=== PATIENT | female | born 2000 | race Caucasian/White ===

== ENCOUNTER 2021-08-21 18:52 | Emergency (ER) | payer OTHER ==
--- OUTSIDE RECORDS SUMMARY | 2021-08-21 18:55 | XMS REPORT | Continuity of Care Document ---
:2000 Author Organization [facility] t Address [address] [place] [address] Care Team Providers Name Role Phone Don Raymundo MD Primary Care Physician DON RAYMUNDO Attending Clinician Unavailable Don Raymundo MD Attending Clinician ELILE Attending Clinician Unavailable UNKNOWN Attending Clinician Unavailable Shanika TORRE Attending Clinician Unavailable Linda NEWTON Attending Clinician Unavailable Payers Payer Name Policy Type Policy Number Effective Date Expiration Date [place] [facility] [id number] 2014 EMPLOYEE PLAN 00:00:00 Advance Directives Directive Decision Effective Termination Comments Source Date Date Healthcare Agents on N/A Univ ersity FileNameRelationshipHealthcare [facility] Agent Medical RelationshipCommunicationNettie Branch [facility] [phone] (Mobile) [email or web address] [facility] [phone] (Mobile) Problems Condition Condition Condition Status Onset Resolution Last Treating Co mments Source Name Details Category Date Date Treatment Clinician Date Allergic Allergic Disease Active Unive rs dermatitis dermatitis - it y of 00:00: [place] [id number] Medical Branch Nexplanon Nexplanon Disease Active Uni vers insertion insertion -18 ity of 00:00: [address] Branch Nexplanon Nexplanon Disease Active Overview: Univers removal removal 01-22 Formattin ity o f 00:00: g of this 00 note Medical might be Branch different from the original. Removal date 02/22/20 Attention Attention Disease Active 2014-10 Uni vers deficit deficit 0-19 ity of disorder disorder 00:00: [place] (ADD) (ADD) 00 Medical without without Branch hyperactiv hyperactiv ity ity Allergies, Adverse Reactions, Alerts Allergy Allergy Status Severity Reaction(s) Onset Inactive Treating Comm ents Source Name Type Date Date Clinician NO KNOWN Drug Active Univers ALLERGIE Class ity of S [place] [facility] Social History Social Habit Start Date Stop Date Quantity Comments [facility] Alcohol Comment Medical B ranch Exposure to Not sure [facility] SARS-CoV-2 (event) Medica l Branch Alcohol intake 2021-07-27 2021-07-27 .14 /d [facility] 00:00:00 00:00:00 Medical Branch History [facility] 2020-04-20 2020-04-20 2 [facility] Alcohol Frequency 00:00:00 00:00:00 Medical Branch History [facility] 2020-04-20 2020-04-20 2 [facility] Alcohol Std Drinks 00:00:00 00:00:00 Medica l Branch History [facility] 2020-04-20 2020-04-20 1 [facility] Alcohol Binge 00:00:00 00:00:00 Medical Bra [facility] Sex Assigned At [birth year] [facility] 00:00:00 00:00:00 Medical Branch Smoking Status Start Date Stop Date Source Never smoker [facility] Medical Branch Medications Ordered Filled Start Stop Current Ordering Indication Dosage Frequency Signature Comments Components Source Medication Medication Date Date Medication? Clinician (SIG) Name Name escitalopra Yes [id number] 10mg Take 1 Univers m oxalate 9-21 tablet by ity o f 10 mg 00:00: mouth [place] tablet 00 daily. Medical Branch escitalopra Yes [id number] 10mg Take 1 Univers m oxalate 9-21 tablet by ity o f 10 mg 00:00: mouth [place] tablet 00 daily. Medical Branch amoxicillin 2020- No Unive rs 500 mg 7-02 13- ity of capsule 00:00: 00:00 [place] 00 :00 Medical Branch amoxicillin 2020- No Unive rs 500 mg 7-02 13-21 ity of capsule 00:00: 00:00 [place] 00 :00 Medical Branch Immunizations Ordered Immunization Filled Immunization Date Status Commen ts Source Name Name HPV9 2017-08-02 Completed University of 00:00:00 [facility] HPV9 2017-08-02 Completed University of 00:00:00 [facility] HPV9 2017-04-02 Completed University of 00:00:00 [facility] HPV9 2017-04-02 Completed University of 00:00:00 [facility] HPV9 2017-01-22 Completed University of 00:00:00 [facility] HPV9 2017-01-22 Completed University of 00:00:00 [facility] TDAP (ADACEL) 2016-01-23 Completed University of VACCINE 00:00:00 [facility] TDAP (ADACEL) 2016-01-23 Completed University of VACCINE 00:00:00 [facility] TDAP 2014-01-18 Completed University of 00:00:00 [facility] Varicella 2014-01-18 Completed University of (varivax)(chicken 00:00:00 [place] M edical pox) Branch Meningococcal 2014-01-18 Completed University of Vaccine 00:00:00 [facility] TDAP 2014-01-18 Completed University of 00:00:00 [facility] Varicella 2014-01-18 Completed University of (varivax)(chicken 00:00:00 [facility] edical pox) Branch Meningococcal 2014-01-18 Completed University of Vaccine 00:00:00 [facility] DTAP 2006-03-12 Completed University of 00:00:00 [facility] MMR 2006-03-12 Completed University of 00:00:00 [facility] Polio (IPV/OPV) 2006-03-12 Completed Universit y of 00:00:00 [facility] DTAP 2006-03-12 Completed University of 00:00:00 [facility] MMR 2006-03-12 Completed University of 00:00:00 [facility] Polio (IPV/OPV) 2006-03-12 Completed Universit y of 00:00:00 [facility] HEPATITIS A 2004-06-20 Completed University of 00:00:00 [facility] HEPATITIS A 2004-06-20 Completed University of 00:00:00 [facility] HEPATITIS A 2003-11-30 Completed University of 00:00:00 [facility] HEPATITIS A 2003-11-30 Completed University of 00:00:00 [facility] DTAP 2003-03-08 Completed University of 00:00:00 [facility] HIB 4 Dose Schedule 2003-03-08 Completed Unive rsity of 00:00:00 [facility] Pneumococcal 13 2003-03-08 Completed Universit y of Conjugate, PCV13 00:00:00 [facility] dical (Prevnar 13) Branch DTAP 2003-03-08 Completed University of 00:00:00 [facility] HIB 4 Dose Schedule 2003-03-08 Completed Unive rsity of 00:00:00 [facility] Pneumococcal 13 2003-03-08 Completed Universit y of Conjugate, PCV13 00:00:00 [place] Me dical (Prevnar 13) Branch Varicella 2002-10-14 Completed University of (varivax)(chicken 00:00:00 [place] M edical pox) Branch MMR 2002-10-14 Completed University of 00:00:00 [facility] Pneumococcal 13 2002-10-14 Completed Universit y of Conjugate, PCV13 00:00:00 [place] Me dical (Prevnar 13) Branch Varicella 2002-10-14 Completed University of (varivax)(chicken 00:00:00 [place] M edical pox) Branch MMR 2002-10-14 Completed University of 00:00:00 [facility] Pneumococcal 13 2002-10-14 Completed Universit y of Conjugate, PCV13 00:00:00 [facility] dical (Prevnar 13) Branch Hep B, Adol or Pedi 2002-07-21 Completed Unive rsity of Dosage 00:00:00 [facility] Hep B, Adol or Pedi 2002-07-21 Completed Unive rsity of Dosage 00:00:00 [facility] DTAP 2002-04-13 Completed University of 00:00:00 [facility] Polio (IPV/OPV) 2002-04-13 Completed Universit y of 00:00:00 [facility] HIB 4 Dose Schedule 2002-04-13 Completed Unive rsity of 00:00:00 [facility] Pneumococcal 13 2002-04-13 Completed Universit y of Conjugate, PCV13 00:00:00 [facility] dical (Prevnar 13) Branch DTAP 2002-04-13 Completed University of 00:00:00 [facility] Polio (IPV/OPV) 2002-04-13 Completed Universit y of 00:00:00 [facility] HIB 4 Dose Schedule 2002-04-13 Completed Unive rsity of 00:00:00 [facility] Pneumococcal 13 2002-04-13 Completed Universit y of Conjugate, PCV13 00:00:00 [place] Me dical (Prevnar 13) Branch DTAP 2002-02-10 Completed University of 00:00:00 [facility] Polio (IPV/OPV) 2002-02-10 Completed Universit y of 00:00:00 [facility] HIB 4 Dose Schedule 2002-02-10 Completed Unive rsity of 00:00:00 [facility] DTAP 2002-02-10 Completed University of 00:00:00 [facility] Polio (IPV/OPV) 2002-02-10 Completed Universit y of 00:00:00 [facility] HIB 4 Dose Schedule 2002-02-10 Completed Unive rsity of 00:00:00 [facility] DTAP 2001 Completed University of 00:00:00 [facility] Polio (IPV/OPV) 2001 Completed Universit y of 00:00:00 [facility] HIB 4 Dose Schedule 2001 Completed Unive rsity of 00:00:00 [facility] Hep B, Adol or Pedi 2001 Completed Unive rsity of Dosage 00:00:00 [facility] Pneumococcal 13 2001 Completed Universit y of Conjugate, PCV13 00:00:00 [place] Me dical (Prevnar 13) Branch DTAP 2001 Completed University of 00:00:00 [facility] Polio (IPV/OPV) 2001 Completed Universit y of 00:00:00 [facility] HIB 4 Dose Schedule 2001 Completed Unive rsity of 00:00:00 [facility] Hep B, Adol or Pedi 2001 Completed Unive rsity of Dosage 00:00:00 [facility] Pneumococcal 13 2001 Completed Universit y of Conjugate, PCV13 00:00:00 [facility] dical (Prevnar 13) Branch Hep B, Adol or Pedi 2001 Completed Unive rsity of Dosage 00:00:00 [facility] Hep B, Adol or Pedi 2001 Completed Unive rsity of Dosage 00:00:00 [facility] Vital Signs Vital Name Observation Time Observation Value Comments Source Systolic blood 2021-07-27 15:06:00 90 mm[Hg] Univer [facility] Branch Diastolic blood 2021-07-27 15:06:00 63 mm[Hg] Unive [facility] pressure [facility] Heart rate 2021-07-27 15:06:00 69 /min [facility] Body weight 2021-07-27 15:06:00 52.617 kg [facility] Procedures This patient has no known procedures. Encounters Start End Encounter Admission Attending Care Care Encounter Source Date/Time Date/Time Type Type Clinicians Facility Department ID 2021-10-26 2021-10-26 Outpatient Shanika RAYMUNDO [facility] [id number] Univers 09:15:00 09:15:00 JUANCHO [id number] [facility] 2021-10-26 2021-10-26 Outpatient Shanika RAYMUNDO [facility] [id number] Univers 09:15:00 09:15:00 [facility] 2021-07-27 2021-07-27 [id number] Univers 10:04:33 10:19:33 Visit [facility] [id number] it y of [place] [id number] Thanh as Dariel?Blea [id number] [address] Medical Office Building 2021-07-27 2021-07-27 Outpatient Shanika RAYMUNDO [facility] [id number] Univers 10:00:00 10:00:00 JUANCHO [id number] [facility] 2021-07-27 2021-07-27 Outpatient Shanika RAYMUNDO [facility] [id number] Univers 10:00:00 10:00:00 JUANCHO [facility] 2021-06-27 2021-06-27 Outpatient Shanika RAYMUNDO [facility] [id number] Univers 08:30:00 08:30:00 JUANCHO [id number] [facility] 2021-06-27 2021-06-27 Outpatient Shanika RAYMUNDO [facility] [id number] Univers 08:30:00 08:30:00 JUANCHO [facility] 2021-06-17 2021-06-17 Outpatient Shanika ARGUETA [facility] [id number] Univers 11:00:00 11:00:00 GARY [facility] 2021-06-17 2021-06-17 Outpatient R [facility] [id number] Univers 11:00:00 11:00:00 [id number] [facility] 2021-06-14 2021-06-14 Outpatient R [facility] [id number] Univers 20:15:00 20:15:00 [id number] [facility] 2021-06-14 2021-06-14 Outpatient R UNKNOWN, [facility] [id number] Univers 20:15:00 20:15:00 ATTENDING [facility] 2021-05-11 2021-05-11 Outpatient R JERRYCHRISDOMITILA [facility] [id number] Univers 11:30:00 11:30:00 JUANCHO [id number] [facility] 2021-05-11 2021-05-11 Outpatient R BISIDOMITILA [facility] [id number] Univers 11:30:00 11:30:00 JUANCHO [facility] 2021-03-02 2021-03-02 [id number] Univers 10:45:00 10:45:00 JUANCHO [id number] [facility] 2021-03-02 2021-03-02 Outpatient R ANTOINE [facility] [id number] Univers 10:45:00 10:45:00 JUANCHO [facility] 2021-02-08 2021-02-08 Outpatient R BISIDOMITILA [facility] [id number] Univers 13:00:00 13:00:00 JUANCHO [id number] [facility] 2021-01-10 2021-01-10 Outpatient R JERRYCHRISDOMITILA [facility] [id number] Univers 13:30:00 13:30:00 JUANCHO [id number] [facility] 2021-01-10 2021-01-10 Outpatient R JERRYCHRISDOMITILA [facility] [id number] Univers 13:30:00 13:30:00 JUANCHO [facility] 2020-10-11 2020-10-11 Outpatient R ANTOINE [facility] [id number] Univers 13:00:00 13:00:00 [facility] [id number] [facility] 2020-10-11 2020-10-11 Outpatient R ANTOINE [facility] [id number] Univers 13:00:00 13:00:00 JUANCHO [facility] 2020-09-17 2020-09-17 Outpatient R [facility] [id number] Univers 12:40:00 12:40:00 [id number] [facility] 2020-09-17 2020-09-17 Outpatient R ELLIE [facility] [id number] Univers 12:40:00 12:40:00 GARY [facility] 2020-05-04 2020-05-04 Outpatient R YELITZA [facility] [id number] Univers 15:15:00 15:15:00 ALEJANDRO [id number] ity o f [facility] 2020-05-04 2020-05-04 Outpatient R YELITZA [facility] [id number] Univers 15:15:00 15:15:00 ALEJANDRO burketty o f [facility] 2020-04-22 2020-04-22 Outpatient R [facility] [id number] Univers 11:40:00 11:40:00 [id number] [facility] 2020-04-22 2020-04-22 Outpatient R [facility] [id number] Univers 11:40:00 11:40:00 ity [facility] 2020-04-20 2020-04-20 Outpatient R YELITZA [facility] [id number] Univers 15:15:00 15:15:00 ALEJANDRO [id number] ity o f [facility] 2020-04-20 2020-04-20 Outpatient R YELITZA [facility] [id number] Univers 15:15:00 15:15:00 ALEJANDRO burketty o f [facility] 2020-02-03 2020-02-03 Outpatient R ANTOINE [facility] [id number] Univers 15:30:00 15:30:00 JUANCHO [id number] [facility] 2020-02-03 2020-02-03 Outpatient R BISIDOMITILA [facility] [id number] Univers 15:30:00 15:30:00 JUANCHO [facility] 2020-01-30 2020-01-30 Outpatient R [facility] [id number] Univers 14:00:00 14:00:00 [id number] [facility] 2020-01-30 2020-01-30 Outpatient R LAMAR [facility] [id number] Univers 14:00:00 14:00:00 TAMIKO [facility] Results This patient has no known results.
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
[2021-08-22 00:23] VITALS: TEMP 98.3
[2021-08-22 00:24] VITALS: BP 117/69; O2SAT 100
== END 2021-08-21 22:07 | disposition home or self-care (01) ==
LOC: ER 18:52
DX: S16.1XXA Strain of muscle, fascia and tendon at neck level, initial encounter (principal); S09.90XA Unspecified injury of head, initial encounter; V49.40XA Driver injured in collision with unspecified motor vehicles in traffic accident, initial encounter; F17.210 Nicotine dependence, cigarettes, uncomplicated; F32.A Depression, unspecified
CPT/HCPCS: 70450; 72125; 99284

== ENCOUNTER 2023-09-09 14:29 | Emergency (ER) | payer OTHER, BC ==
--- OUTSIDE RECORDS SUMMARY | 2023-09-09 14:41 | XMS REPORT | Continuity of Care Document ---
:2000 Author Organization [facility] t Address [address] [place] [address] Care Team Providers Name Role Phone Antoine WHEELER, Juancho Ochoa Primary Care Physician [phone] Jyotsna Torrez MD Attending Clinician JYOTSNA TORREZ Attending Clinician Unavailable Doctor Unassigned, [place] Attending Clinician Unavailable DENISE BELLO Attending Clinician Unavailable DENISE BELLO Attending Clinician Unavailable Lab, Ang - Db Attending Clinician Unavailable JUANCHO SCHULTZ Attending Clinician Unavailable Juancho Schultz MD Attending Clinician Vaccine, Ang Db Cbc Fam Attending Clinician Unavailable Team, [facility] Attending Clinician UnavailRenetta Pineda Attending Clinician Nely Archuleta Attending Clinician NELY ARGUETA Attending Clinician Unavailable Gema Santana MD Attending Clinician Ranjana Mitchell Attending Clinician RANJANA IRVING Attending Clinician Unavailable Mandi Villar RN Attending Clinician Unavailable Only, Ang Db Test Attending Clinician Unavailable Unknown, Attending Attending Clinician Unavailable Tonya Edward PA-C Attending Clinician UNKNOWN, ATTENDING Attending Clinician Unavailable Lab, Adc Fam Pob I Attending Clinician Unavailable Angelita Chinchilla Attending Clinician ANGELITA TORRE Attending Clinician Unavailable Donna Barraza Attending Clinician TAMIKO NEWTON Attending Clinician Unavailable Payers Payer Name Policy Type Policy Number Effective Date Expiration Date S ource Problems Condition Condition Condition Status Onset Resolution Last Treating Co mments Source Name Details Category Date Date Treatment Clinician Date Vaginal Vaginal Disease Active Univers discharge discharge 2-22 ity of 00:00: [place] 00 Medical Branch Allergic Allergic Disease Active Unive rs dermatitis dermatitis - it y of 00:00: [place] 00 Medical [place] Screening Screening Disease Active Uni vers examinatio examinatio -18 it y of n for n for 00:00: [place] venereal venereal 00 Medica l disease disease Branch Nexplanon Nexplanon Disease Active Overview: Univers removal removal 01-22 Formattin ity o f 00:00: g of this 00 note Medical might be Branch different from the original. Removal date 02/22/20 Attention Attention Disease Active 2014-10 Uni vers deficit deficit 0-19 ity of disorder disorder 00:00: [place] (ADD) (ADD) 00 Medical without without Branch hyperactiv hyperactiv ity ity Allergies, Adverse Reactions, Alerts Allergy Allergy Status Severity Reaction(s) Onset Inactive Treating Comm ents Source Name Type Date Date Clinician NO KNOWN Drug Active Univers ALLERGIE Class ity of S [facility] Social History Social Habit Start Date Stop Date Quantity Comments Source History of tobacco Cigarette Smoker University of use [facility] Sexual orientation Univer sity of [facility] Alcohol intake 2023-08-08 2023-08-08 .14 /d [facility] 00:00:00 00:00:00 [facility] Tobacco use and 2022-11-28 2022-11-28 Smokeless Universit y of exposure 00:00:00 00:00:00 tobacco non-user [facility] Tobacco Comment 2022-11-28 2022-11-28 1/2 pack per Univers ity of 00:00:00 00:00:00 week [facility] Alcohol Comment 2022-11-28 2022-11-28 weekends Universit y of 00:00:00 00:00:00 [facility] Exposure to 2022-11-17 2022-11-27 Not sure University SARS-CoV-2 (event) 00:00:00 10:19:00 [facility] History of Social 2022-06-28 2022-06-28 Univers ity of function 00:00:00 00:00:00 [place] [facility] [place] History SDIL 2020-04-20 2020-04-20 2 University o f Alcohol Frequency 00:00:00 00:00:00 [facility] edical Branch History [facility] 2020-04-20 2020-04-20 2 University o f Alcohol Std Drinks 00:00:00 00:00:00 [facility] History [facility] 2020-04-20 2020-04-20 1 University o f Alcohol Binge 00:00:00 00:00:00 [facility] [place] [facility] Sex Assigned At 2000 2001 Universit y of 00:00:00 00:00:00 [facility] Smoking Status Start Date Stop Date Source Occasional tobacco [facility]22[facility] Medications Ordered Filled Start Stop Current Ordering Indication Dosage Frequency Signature Comments Components Source Medication Medication Date Date Medication? Clinician (SIG) Name Name escitalopra 2021-10 Yes [id number] 20mg Take 1 Univers m oxalate 2-22 tablet by ity o f 20 mg 00:00: mouth in [place] tablet 00 the Medical morning. Branch escitalopra 2021-10 Yes [id number] 20mg Take 1 Univers m oxalate 2-22 tablet by ity o f 20 mg 00:00: mouth in [place] tablet 00 the Medical morning. Branch escitalopra 2021-10 Yes [id number] 20mg Take 1 Univers m oxalate 2-22 tablet by ity o f 20 mg 00:00: mouth in [place] tablet 00 the Medical morning. Branch escitalopra 2021-10 Yes [id number] 20mg Take 1 Univers m oxalate 2-22 tablet by ity o f 20 mg 00:00: mouth in [place] tablet 00 the Medical morning. Branch escitalopra 2021-10 Yes [id number] 20mg Take 1 Univers m oxalate 2-22 tablet by ity o f 20 mg 00:00: mouth in [place] tablet 00 the Medical morning. Branch escitalopra 2021-10 Yes [id number] 20mg Take 1 Univers m oxalate 2-22 tablet by ity o f 20 mg 00:00: mouth in [place] tablet 00 the Medical morning. Branch escitalopra 2021-10 Yes [id number] 20mg Take 1 Univers m oxalate 2-22 tablet by ity o f 20 mg 00:00: mouth in [place] tablet 00 the Medical morning. Branch escitalopra 2021-10 Yes [id number] 20mg Take 1 Univers m oxalate 2-22 tablet by ity o f 20 mg 00:00: mouth in [place] tablet 00 the Medical morning. Branch escitalopra 0 Yes [id number] 10mg Take 1 Univers m oxalate 9-22 tablet by ity o f 10 mg 00:00: mouth in [place] tablet 00 the Medical morning. Branch escitalopra Yes [id number] 10mg Take 1 Univers m oxalate 9-22 tablet by ity o f 10 mg 00:00: mouth in [place] tablet 00 the Medical morning. Branch escitalopra Yes [id number] 10mg Take 1 Univers m oxalate 9-22 tablet by ity o f 10 mg 00:00: mouth in [place] tablet 00 the Medical morning. Branch escitalopra 2021-0 2- No [id number] 10mg Take 1 Univers m oxalate 9-22 12-22 tablet by ity of 10 mg 00:00: 00:00 mouth in [place] tablet 00 :00 the Medical morning. Branch escitalopra 2021-0 2- No [id number] 10mg Take 1 Univers m oxalate 9-22 12-22 tablet by ity of 10 mg 00:00: 00:00 mouth in [place] tablet 00 :00 the Medical morning. Branch lidocaine Yes [id number] 3mL Take 3 mL Univers 2% viscous 2-05 by mouth ity o f (LIDOCAINE 00:00: every 4 [place] VISC[place] 2 00 (four) Medical % solution hours as Branc h needed for Local anesthesia or Oral mucosal pain (brush with q tip over broken tooth/guml ine). lidocaine Yes [id number] 3mL Take 3 mL Univers 2% viscous 2-05 by mouth ity o f (LIDOCAINE 00:00: [place] V[place] 2 00 (four) Medical % solution hours as Branc h needed for Local anesthesia or Oral mucosal pain (brush with q tip over broken tooth/guml ine). lidocaine Yes [id number] 3mL Take 3 mL Univers 2% viscous 2-05 by mouth ity o f (LIDOCAINE 00:00: every [place] VISC[place] 2 00 (four) Medical % solution hours as Branc h needed for Local anesthesia or Oral mucosal pain (brush with q tip over broken tooth/guml ine). lidocaine Yes [id number] 3mL Take 3 mL Univers 2% viscous 2-05 by mouth ity o f (LIDOCAINE 00:00: every [place] V[place] 2 00 (four) Medical % solution hours as Branc h needed for Local anesthesia or Oral mucosal pain (brush with q tip over broken tooth/guml ine). lidocaine Yes [id number] 3mL Take 3 mL Univers 2% viscous 2-05 by mouth ity o f (LIDOCAINE 00:00: every 4 [place] VISC[place] 2 00 (four) Medical % solution hours as Branc h needed for Local anesthesia or Oral mucosal pain (brush with q tip over broken tooth/guml ine). lidocaine Yes [id number] 3mL Take 3 mL Univers 2% viscous 2-05 by mouth ity o f (LIDOCAINE 00:00: every 4 [place] VISC[place] 2 00 (four) Medical % solution hours as Branc h needed for Local anesthesia or Oral mucosal pain (brush with q tip over broken tooth/guml ine). lidocaine 2021- No [id number] 3mL Take 3 mL Univers 2% viscous 2-05 06-28 by mouth ity of (LIDOCAINE 00:00: 00:00 every 4 [place] as VISCOUS) 2 00 :00 (four) Medical % solution hours as Branc h needed for Local anesthesia or Oral mucosal pain (brush with q tip over broken tooth/guml ine). lidocaine 2021- No [id number] 3mL Take 3 mL Univers 2% viscous 2-05 06-28 by mouth ity of (LIDOCAINE 00:00: 00:00 every 4 [place] as VISCOUS) 2 00 :00 (four) Medical % solution hours as Branc h needed for Local anesthesia or Oral mucosal pain (brush with q tip over broken tooth/guml ine). escitalopra Yes [id number] 10mg Take 1 Univers m oxalate 1-20 tablet by ity o f 10 mg 00:00: mouth [place] tablet 00 daily. [facility] escitalopra Yes [id number] 10mg Take 1 Univers m oxalate 1-20 tablet by ity o f 10 mg 00:00: mouth [place] tablet 00 daily. [facility] escitalopra Yes [id number] 10mg Take 1 Univers m oxalate 1-20 tablet by ity o f 10 mg 00:00: mouth [place] tablet 00 daily. [facility] escitalopra Yes [id number] 10mg Take 1 Univers m oxalate 1-20 tablet by ity o f 10 mg 00:00: mouth [place] tablet 00 daily. [facility] escitalopra Yes [id number] 10mg Take 1 Univers m oxalate 1-20 tablet by ity o f 10 mg 00:00: mouth [place] tablet 00 daily. [facility] escitalopra Yes [id number] 10mg Take 1 Univers m oxalate 1-20 tablet by ity o f 10 mg 00:00: mouth [place] tablet 00 daily. [facility] escitalopra Yes [id number] 10mg Take 1 Univers m oxalate 1-20 tablet by ity o f 10 mg 00:00: mouth [place] tablet 00 daily. [facility] escitalopra Yes [id number] 10mg Take 1 Univers m oxalate 1-20 tablet by ity o f 10 mg 00:00: mouth [place] tablet 00 daily. [facility] escitalopra 2021- No [id number] 10mg Take 1 Univers m oxalate 1-20 -22 tablet by ity of 10 mg 00:00: 00:00 mouth [place] tablet 00 :00 daily. [facility] escitalopra 2021- No [id number] 10mg Take 1 Univers m oxalate 1-20 -22 tablet by ity of 10 mg 00:00: 00:00 mouth [place] tablet 00 :00 daily. [facility] escitalopra 2021- No [id number] 10mg Take 1 Univers m oxalate 9-21 -20 tablet by ity of 10 mg 00:00: 00:00 mouth [place] tablet 00 :00 daily. [facility] escitalopra 2021- No [id number] 10mg Take 1 Univers m oxalate 9-21 -20 tablet by [place] of 10 mg 00:00: 00:00 mouth [place] tablet 00 :00 daily. Medical Branch Immunizations Ordered Filled Date Status Comments Source Immunization Name Immunization Name Influenza Virus 2022-06-28 Completed Universit y of Vaccine [facility], 00:00:00 [place] Me dical Preserv and ABX Branch Free 6 MO-64 YRS Influenza Virus 2022-06-28 Completed Universit y of Vaccine [facility], 00:00:00 [place] Me dical Preserv and ABX Branch Free 6 MO-64 YRS Influenza Virus 2022-06-28 Completed Universit y of Vaccine [facility], 00:00:00 [place] Me dical Preserv and ABX Branch Free 6 MO-64 YRS Influenza Virus 2022-06-28 Completed Universit y of Vaccine [facility], 00:00:00 [place] Me dical Preserv and ABX Branch Free 6 MO-64 YRS Influenza Virus 2022-06-28 Completed Universit y of Vaccine [facility], 00:00:00 [place] Me dical Preserv and ABX Branch Free 6 MO-64 YRS Influenza Virus 2022-06-28 Completed Universit y of Vaccine [facility], 00:00:00 [place] Me dical Preserv and ABX Branch Free 6 MO-64 YRS Influenza Virus 2022-06-28 Completed Universit y of Vaccine [facility], 00:00:00 [place] Me dical Preserv and ABX Branch Free 6 MO-64 YRS Influenza Virus 2022-06-28 Completed Universit y of Vaccine [facility], 00:00:00 [place] Me dical Preserv and ABX Branch Free 6 MO-64 YRS SARS-COV-2 COVID-19 2022-05-17 Completed Unive rsity of PFIZER JANETT-SUCROSE 00:00:00 [place] Medical VACCINE (MANNING TOP) Branch SARS-COV-2 COVID-19 2022-05-17 Completed Unive rsity of PFIZER JANETT-SUCROSE 00:00:00 [place] [facility] VACCINE (MANNING TOP) Branch SARS-COV-2 COVID-19 2022-05-17 Completed Unive rsity of PFIZER JANETT-SUCROSE 00:00:00 [place] [facility] VACCINE (MANNING TOP) Branch SARS-COV-2 COVID-19 2022-05-17 Completed Unive rsity of PFIZER JANETT-SUCROSE 00:00:00 [place] [facility] VACCINE (MANNING TOP) Branch SARS-COV-2 COVID-19 2022-05-17 Completed Unive rsity of PFIZER JANETT-SUCROSE 00:00:00 [place] [facility] VACCINE (MANNING TOP) Branch SARS-COV-2 COVID-19 2022-05-17 Completed Unive rsity of PFIZER JANETT-SUCROSE 00:00:00 [place] [facility] VACCINE (MANNING TOP) Branch SARS-COV-2 COVID-19 2022-05-17 Completed Unive rsity of PFIZER JANETT-SUCROSE 00:00:00 [place] [facility] VACCINE (MANNING TOP) Branch SARS-COV-2 COVID-19 2022-05-17 Completed Unive rsity of PFIZER JANETT-SUCROSE 00:00:00 [place] [facility] VACCINE (MANNING TOP) Branch SARS-COV-2 COVID-19 2022-05-17 Completed Unive rsity of PFIZER JANETT-SUCROSE 00:00:00 [place] [facility] VACCINE (MANNING TOP) Branch SARS-COV-2 COVID-19 2022-04-26 Completed Unive rsity of PFIZER JANETT-SUCROSE 00:00:00 [place] [facility] VACCINE (MANNING TOP) Branch SARS-COV-2 COVID-19 2022-04-26 Completed Unive rsity of PFIZER JANETT-SUCROSE 00:00:00 [place] [facility] VACCINE (MANNING TOP) Branch SARS-COV-2 COVID-19 2022-04-26 Completed Unive rsity of PFIZER JANETT-SUCROSE 00:00:00 [place] [facility] VACCINE (MANNING TOP) Branch SARS-COV-2 COVID-19 2022-04-26 Completed Unive rsity of PFIZER JANETT-SUCROSE 00:00:00 [place] [facility] VACCINE (MANNING TOP) Branch SARS-COV-2 COVID-19 2022-04-26 Completed Unive rsity of PFIZER JANETT-SUCROSE 00:00:00 [place] [facility] VACCINE (MANNING TOP) Branch SARS-COV-2 COVID-19 2022-04-26 Completed Unive rsity of PFIZER JANETT-SUCROSE 00:00:00 [place] [facility] VACCINE (MANNING TOP) Branch SARS-COV-2 COVID-19 2022-04-26 Completed Unive rsity of PFIZER JANETT-SUCROSE 00:00:00 [place] [facility] VACCINE (MANNING TOP) Branch SARS-COV-2 COVID-19 2022-04-26 Completed Unive rsity of PFIZER JANETT-SUCROSE 00:00:00 [place] [facility] VACCINE (MANNING TOP) Branch SARS-COV-2 COVID-19 2022-04-26 Completed Unive rsity of PFIZER JANETT-SUCROSE 00:00:00 [place] [facility] VACCINE (MANNING TOP) Branch SARS-COV-2 COVID-19 2022-04-26 Completed Unive rsity of PFIZER JANETT-SUCROSE 00:00:00 [place] [facility] VACCINE (MANNING TOP) Branch HPV9 2017-08-02 Completed University of 00:00:00 [place] [facility] Branch HPV9 2017-08-02 Completed University of 00:00:00 [place] [facility] HPV9 2017-08-02 Completed University of 00:00:00 [place] [facility] HPV9 2017-08-02 Completed University of 00:00:00 [place] [facility] HPV9 2017-08-02 Completed University of 00:00:00 [place] [facility] HPV9 2017-08-02 Completed University of 00:00:00 [place] [facility] HPV9 2017-08-02 Completed University of 00:00:00 [place] [facility] Branch HPV9 2017-08-02 Completed University of 00:00:00 [place] [facility] Branch HPV9 2017-08-02 Completed University of 00:00:00 [place] [facility] Branch HPV9 2017-08-02 Completed University of 00:00:00 [place] [facility] Branch HPV9 2017-08-02 Completed University of 00:00:00 [place] [facility] Branch HPV9 2017-08-02 Completed University of 00:00:00 [place] [facility] Branch HPV9 2017-08-02 Completed University of 00:00:00 [place] [facility] Branch HPV9 2017-08-02 Completed University of 00:00:00 [place] [facility] Branch HPV9 2017-08-02 Completed University of 00:00:00 [place] [facility] Branch HPV9 2017-08-02 Completed University of 00:00:00 [place] [facility] Branch HPV9 2017-04-02 Completed University of 00:00:00 [place] [facility] HPV9 2017-04-02 Completed University of 00:00:00 [place] [facility] Branch HPV9 2017-04-02 Completed University of 00:00:00 [place] [facility] Branch HPV9 2017-04-02 Completed University of 00:00:00 [place] [facility] Branch HPV9 2017-04-02 Completed University of 00:00:00 [place] [facility] Branch HPV9 2017-04-02 Completed University of 00:00:00 [place] [facility] Branch HPV9 2017-04-02 Completed University of 00:00:00 [place] [facility] Branch HPV9 2017-04-02 Completed University of 00:00:00 [place] [facility] Branch HPV9 2017-04-02 Completed University of 00:00:00 [place] [facility] HPV9 2017-04-02 Completed University of 00:00:00 [place] [facility] HPV9 2017-04-02 Completed University of 00:00:00 [place] [facility] HPV9 2017-04-02 Completed University of 00:00:00 [place] [facility] Branch HPV9 2017-04-02 Completed University of 00:00:00 [place] [facility] Branch HPV9 2017-04-02 Completed University of 00:00:00 [place] [facility] HPV9 2017-04-02 Completed University of 00:00:00 [place] [facility] HPV9 2017-04-02 Completed University of 00:00:00 [place] [facility] Branch HPV9 2017-01-22 Completed University of 00:00:00 [place] [facility] Branch HPV9 2017-01-22 Completed University of 00:00:00 [place] [facility] Branch HPV9 2017-01-22 Completed University of 00:00:00 [place] [facility] Branch HPV9 2017-01-22 Completed University of 00:00:00 [place] [facility] Branch HPV9 2017-01-22 Completed University of 00:00:00 [place] [facility] Branch HPV9 2017-01-22 Completed University of 00:00:00 [place] [facility] Branch HPV9 2017-01-22 Completed University of 00:00:00 [place] [facility] Branch HPV9 2017-01-22 Completed University of 00:00:00 [place] [facility] Branch HPV9 2017-01-22 Completed University of 00:00:00 [place] [facility] Branch HPV9 2017-01-22 Completed University of 00:00:00 [place] [facility] Branch HPV9 2017-01-22 Completed University of 00:00:00 [place] [facility] Branch HPV9 2017-01-22 Completed University of 00:00:00 [place] [facility] Branch HPV9 2017-01-22 Completed University of 00:00:00 [place] [facility] Branch HPV9 2017-01-22 Completed University of 00:00:00 [place] [facility] Branch HPV9 2017-01-22 Completed University of 00:00:00 [place] [facility] Branch HPV9 2017-01-22 Completed University of 00:00:00 [facility] TDAP (ADACEL) 2016-01-23 Completed University of VACCINE 00:00:00 [facility] TDAP (ADACEL) 2016-01-23 Completed University of VACCINE 00:00:00 [facility] TDAP (ADACEL) 2016-01-23 Completed University of VACCINE 00:00:00 [facility] TDAP (ADACEL) 2016-01-23 Completed University of VACCINE 00:00:00 [facility] TDAP (ADACEL) 2016-01-23 Completed University of VACCINE 00:00:00 [facility] TDAP (ADACEL) 2016-01-23 Completed University of VACCINE 00:00:00 [facility] TDAP (ADACEL) 2016-01-23 Completed University of VACCINE 00:00:00 [facility] TDAP (ADACEL) 2016-01-23 Completed University of VACCINE 00:00:00 [facility] TDAP (ADACEL) 2016-01-23 Completed University of VACCINE 00:00:00 [facility] TDAP (ADACEL) 2016-01-23 Completed University of VACCINE 00:00:00 [facility] TDAP (ADACEL) 2016-01-23 Completed University of VACCINE 00:00:00 [facility] TDAP (ADACEL) 2016-01-23 Completed University of VACCINE 00:00:00 [facility] TDAP (ADACEL) 2016-01-23 Completed University of VACCINE 00:00:00 [facility] TDAP (ADACEL) 2016-01-23 Completed University of VACCINE 00:00:00 [facility] TDAP (ADACEL) 2016-01-23 Completed University of VACCINE 00:00:00 [facility] TDAP (ADACEL) 2016-01-23 Completed University of VACCINE 00:00:00 [facility] Meningococcal 2014-01-18 Completed University of Vaccine 00:00:00 [facility] TDAP 2014-01-18 Completed University of 00:00:00 [facility] Varicella 2014-01-18 Completed University of (varivax)(chicken 00:00:00 [place] M edical pox) Branch Meningococcal 2014-01-18 Completed University of Vaccine 00:00:00 [facility] TDAP 2014-01-18 Completed University of 00:00:00 [facility] Varicella 2014-01-18 Completed University of (varivax)(chicken 00:00:00 [place] M edical pox) Branch Meningococcal 2014-01-18 Completed University of Vaccine 00:00:00 [facility] TDAP 2014-01-18 Completed University of 00:00:00 [facility] Varicella 2014-01-18 Completed University of (varivax)(chicken 00:00:00 [place] M edical pox) Branch Meningococcal 2014-01-18 Completed University of Vaccine 00:00:00 [facility] TDAP 2014-01-18 Completed University of 00:00:00 [facility] Varicella 2014-01-18 Completed University of (varivax)(chicken 00:00:00 [place] M [facility]ical pox) Branch Meningococcal 2014-01-18 Completed University of Vaccine 00:00:00 [facility] TDAP 2014-01-18 Completed University of 00:00:00 [facility] Varicella 2014-01-18 Completed University of (varivax)(chicken 00:00:00 [place] M edical pox) Branch Meningococcal 2014-01-18 Completed University of Vaccine 00:00:00 [facility] TDAP 2014-01-18 Completed University of 00:00:00 [facility] Varicella 2014-01-18 Completed University of (varivax)(chicken 00:00:00 [place] M edical pox) Branch Meningococcal 2014-01-18 Completed University of Vaccine 00:00:00 [facility] TDAP 2014-01-18 Completed University of 00:00:00 [facility] Varicella 2014-01-18 Completed University of (varivax)(chicken 00:00:00 [place] M edical pox) Branch Meningococcal 2014-01-18 Completed University of Vaccine 00:00:00 [facility] TDAP 2014-01-18 Completed University of 00:00:00 [facility] Varicella 2014-01-18 Completed University of (varivax)(chicken 00:00:00 [place] M edical pox) Branch Meningococcal 2014-01-18 Completed University of Vaccine 00:00:00 [facility] TDAP 2014-01-18 Completed University of 00:00:00 [facility] Varicella 2014-01-18 Completed University of (varivax)(chicken 00:00:00 [place] M edical pox) Branch Meningococcal 2014-01-18 Completed University of Vaccine 00:00:00 [facility] TDAP 2014-01-18 Completed University of 00:00:00 [facility] Varicella 2014-01-18 Completed University of (varivax)(chicken 00:00:00 [place] M edical pox) Branch Meningococcal 2014-01-18 Completed University of Vaccine 00:00:00 [facility] TDAP 2014-01-18 Completed University of 00:00:00 [facility] Varicella 2014-01-18 Completed University of (varivax)(chicken 00:00:00 [place] M edical pox) Branch Meningococcal 2014-01-18 Completed University of Vaccine 00:00:00 [facility] TDAP 2014-01-18 Completed University of 00:00:00 [facility] Varicella 2014-01-18 Completed University of (varivax)(chicken 00:00:00 [place] M edical pox) Branch Meningococcal 2014-01-18 Completed University of Vaccine 00:00:00 [facility] TDAP 2014-01-18 Completed University of 00:00:00 [facility] Varicella 2014-01-18 Completed University of (varivax)(chicken 00:00:00 [place] M edical pox) Branch Meningococcal 2014-01-18 Completed University of Vaccine 00:00:00 [facility] TDAP 2014-01-18 Completed University of 00:00:00 [facility] [facility] Varicella 2014-01-18 Completed [facility] (varivax)(chicken 00:00:00 [facility] pox[facility] Meningococcal 2014-01-18 Completed [facility] Vaccine 00:00:00 [facility] TDAP 2014-01-18 Completed [facility] 00:00:00 [facility] Varicella 2014-01-18 Completed [facility] (varivax)(chicken 00:00:00 [facility] pox[facility] Meningococcal 2014-01-18 Completed [facility] Vaccine 00:00:00 [facility] TDAP 2014-01-18 Completed [facility] 00:00:00 [facility] Varicella 2014-01-18 Completed [facility] (varivax)(chicken 00:00:00 [facility] pox[facility] MMR 2006-03-12 Completed [facility] 00:00:00 [facility] Polio (IPV/OPV) 2006-03-12 Completed [facility]it [facility] 00:00:00 [facility] DTAP 2006-03-12 Completed [facility] 00:00:00 [facility] MMR 2006-03-12 Completed [facility] of 00:00:00 [facility] Polio (IPV/OPV) 2006-03-12 Completed [facility]it [facility] 00:00:00 [facility] DTAP 2006-03-12 Completed [facility] 00:00:00 [facility] MMR 2006-03-12 Completed [facility] 00:00:00 [facility] Polio (IPV/OPV) 2006-03-12 Completed [facility]it [facility] 00:00:00 [facility] DTAP 2006-03-12 Completed [facility] 00:00:00 [facility] MMR 2006-03-12 Completed [facility] 00:00:00 [facility] Polio (IPV/OPV) 2006-03-12 Completed [facility] 00:00:00 [facility] DTAP 2006-03-12 Completed [facility] 00:00:00 [facility] MMR 2006-03-12 Completed [facility] 00:00:00 [facility] Polio (IPV/OPV) 2006-03-12 Completed [facility] 00:00:00 [facility] DTAP 2006-03-12 Completed [facility] 00:00:00 [facility] MMR 2006-03-12 Completed [facility] 00:00:00 [facility] Polio (IPV/OPV) 2006-03-12 Completed [facility]it [facility] 00:00:00 [facility] DTAP 2006-03-12 Completed [facility] 00:00:00 [facility] MMR 2006-03-12 Completed [facility] 00:00:00 [facility] Polio (IPV/OPV) 2006-03-12 Completed [facility]it [facility] of 00:00:00 [facility] DTAP 2006-03-12 Completed [facility] 00:00:00 [facility] MMR 2006-03-12 Completed [facility] 00:00:00 [facility] Polio (IPV/OPV) 2006-03-12 Completed [facility]it [facility] 00:00:00 [facility] DTAP 2006-03-12 Completed [facility] 00:00:00 [facility] MMR 2006-03-12 Completed [facility] 00:00:00 [facility] Polio (IPV/OPV) 2006-03-12 Completed [facility]it [facility] of 00:00:00 [facility] DTAP 2006-03-12 Completed [facility] 00:00:00 [facility] MMR 2006-03-12 Completed [facility] 00:00:00 [facility] Polio (IPV/OPV) 2006-03-12 Completed [facility] 00:00:00 [facility] DTAP 2006-03-12 Completed [facility] 00:00:00 [facility] MMR 2006-03-12 Completed [facility] 00:00:00 [facility] Polio (IPV/OPV) 2006-03-12 Completed [facility] 00:00:00 [facility] DTAP 2006-03-12 Completed [facility] of 00:00:00 [facility] MMR 2006-03-12 Completed [facility] of 00:00:00 [facility] Polio (IPV/OPV) 2006-03-12 Completed [facility]it [facility] of 00:00:00 [facility] DTAP 2006-03-12 Completed [facility] of 00:00:00 [facility] MMR 2006-03-12 Completed [facility] of 00:00:00 [facility] Polio (IPV/OPV) 2006-03-12 Completed [facility]it [facility] of 00:00:00 [facility] DTAP 2006-03-12 Completed [facility] of 00:00:00 [facility] MMR 2006-03-12 Completed [facility] of 00:00:00 [facility] Polio (IPV/OPV) 2006-03-12 Completed [facility]it [facility] of 00:00:00 [facility] DTAP 2006-03-12 Completed [facility] of 00:00:00 [facility] MMR 2006-03-12 Completed [facility] of 00:00:00 [facility] Polio (IPV/OPV) 2006-03-12 Completed [facility]it [facility] of 00:00:00 [facility] DTAP 2006-03-12 Completed [facility] of 00:00:00 [facility] MMR 2006-03-12 Completed [facility] of 00:00:00 [facility] Polio (IPV/OPV) 2006-03-12 Completed [facility]it [facility] of 00:00:00 [facility] DTAP 2006-03-12 Completed [facility] of 00:00:00 [facility] HEPATITIS A 2004-06-20 Completed [facility] of 00:00:00 [facility] HEPATITIS A 2004-06-20 Completed [facility] 00:00:00 [facility] HEPATITIS A 2004-06-20 Completed [facility] 00:00:00 [facility] HEPATITIS A 2004-06-20 Completed [facility] 00:00:00 [facility] HEPATITIS A 2004-06-20 Completed [facility] of 00:00:00 [facility] HEPATITIS A 2004-06-20 Completed [facility] 00:00:00 [facility] HEPATITIS A 2004-06-20 Completed [facility] of 00:00:00 [facility] HEPATITIS A 2004-06-20 Completed [facility] 00:00:00 [facility] HEPATITIS A 2004-06-20 Completed [facility] 00:00:00 [facility] HEPATITIS A 2004-06-20 Completed [facility] 00:00:00 [facility] HEPATITIS A 2004-06-20 Completed [facility] of 00:00:00 [facility] HEPATITIS A 2004-06-20 Completed [facility] of 00:00:00 [facility] HEPATITIS A 2004-06-20 Completed [facility] of 00:00:00 [facility] HEPATITIS A 2004-06-20 Completed [facility] of 00:00:00 [facility] HEPATITIS A 2004-06-20 Completed [facility] of 00:00:00 [facility] HEPATITIS A 2004-06-20 Completed [facility] 00:00:00 [facility] HEPATITIS A 2003-11-30 Completed [facility] of 00:00:00 [facility] HEPATITIS A 2003-11-30 Completed [facility] of 00:00:00 [facility] HEPATITIS A 2003-11-30 Completed [facility] of 00:00:00 [facility] HEPATITIS A 2003-11-30 Completed [facility] of 00:00:00 [facility] HEPATITIS A 2003-11-30 Completed [facility] of 00:00:00 [facility] HEPATITIS A 2003-11-30 Completed [facility] of 00:00:00 [facility] HEPATITIS A 2003-11-30 Completed [facility] of 00:00:00 [facility] HEPATITIS A 2003-11-30 Completed [facility] of 00:00:00 [facility] HEPATITIS A 2003-11-30 Completed [facility] of 00:00:00 [facility] HEPATITIS A 2003-11-30 Completed [facility] 00:00:00 [facility] HEPATITIS A 2003-11-30 Completed [facility] of 00:00:00 [facility] HEPATITIS A 2003-11-30 Completed [facility] of 00:00:00 [facility] HEPATITIS A 2003-11-30 Completed [facility] of 00:00:00 [facility] HEPATITIS A 2003-11-30 Completed [facility] of 00:00:00 [facility] HEPATITIS A 2003-11-30 Completed [facility] of 00:00:00 [facility] HEPATITIS A 2003-11-30 Completed [facility] of 00:00:00 [facility] HIB 4 Dose Schedule 2003-03-08 Completed Unive rsity of 00:00:00 [facility] Pneumococcal 13 2003-03-08 Completed Universit y of Conjugate, PCV13 00:00:00 [facility] dical (Prevnar 13) Branch DTAP 2003-03-08 Completed [facility] of 00:00:00 [facility] HIB 4 Dose Schedule 2003-03-08 Completed Unive rsity of 00:00:00 [facility] Pneumococcal 13 2003-03-08 Completed Universit y of Conjugate, PCV13 00:00:00 [place] [facility] (Prevnar 13) [facility] DTAP 2003-03-08 Completed [facility] of 00:00:00 [facility] HIB 4 Dose Schedule 2003-03-08 Completed Unive rsity of 00:00:00 [facility] Pneumococcal 13 2003-03-08 Completed Universit y of Conjugate, PCV13 00:00:00 [facility] dical (Prevnar 13) Branch DTAP 2003-03-08 Completed [facility] of 00:00:00 [facility] HIB 4 Dose Schedule 2003-03-08 Completed Unive rsity of 00:00:00 [facility] Pneumococcal 13 2003-03-08 Completed [facility]it y of Conjugate, PCV13 00:00:00 [place] [facility] (Prevnar 13) [facility] DTAP 2003-03-08 Completed [facility] of 00:00:00 [facility] HIB 4 Dose Schedule 2003-03-08 Completed Unive rsity of 00:00:00 [facility] Pneumococcal 13 2003-03-08 Completed Universit y of Conjugate, PCV13 00:00:00 [facility] dical (Prevnar 13) Branch DTAP 2003-03-08 Completed [facility] of 00:00:00 [facility] HIB 4 Dose Schedule 2003-03-08 Completed Unive rsity of 00:00:00 [facility] Pneumococcal 13 2003-03-08 Completed Universit y of Conjugate, PCV13 00:00:00 [facility] dical (Prevnar 13) Branch DTAP 2003-03-08 Completed [facility] of 00:00:00 [facility] HIB 4 Dose Schedule 2003-03-08 Completed Unive rsity of 00:00:00 [facility] Pneumococcal 13 2003-03-08 Completed Universit y of Conjugate, PCV13 00:00:00 [place] [facility] (Prevnar 13) [facility] DTAP 2003-03-08 Completed [facility] of 00:00:00 [facility] HIB 4 Dose Schedule 2003-03-08 Completed Unive rsity of 00:00:00 [facility] Pneumococcal 13 2003-03-08 Completed Universit y of Conjugate, PCV13 00:00:00 [place] [facility] (Prevnar 13) [facility] DTAP 2003-03-08 Completed [facility] of 00:00:00 [facility] HIB 4 Dose Schedule 2003-03-08 Completed Unive rsity of 00:00:00 [facility] Pneumococcal 13 2003-03-08 Completed Universit y of Conjugate, PCV13 00:00:00 [place] [facility] (Prevnar 13) [facility] DTAP 2003-03-08 Completed [facility] of 00:00:00 [facility] HIB 4 Dose Schedule 2003-03-08 Completed Unive rsity of 00:00:00 [facility] Pneumococcal 13 2003-03-08 Completed Universit y of Conjugate, PCV13 00:00:00 [place] [facility] (Prevnar 13) [facility] DTAP 2003-03-08 Completed [facility] of 00:00:00 [facility] HIB 4 Dose Schedule 2003-03-08 Completed Unive rsity of 00:00:00 [facility] Pneumococcal 13 2003-03-08 Completed Universit y of Conjugate, PCV13 00:00:00 [place] [facility] (Prevnar 13) [facility] DTAP 2003-03-08 Completed [facility] of 00:00:00 [facility] HIB 4 Dose Schedule 2003-03-08 Completed Unive rsity of 00:00:00 [facility] Pneumococcal 13 2003-03-08 Completed Universit y of Conjugate, PCV13 00:00:00 [place] [facility] (Prevnar 13) [facility] DTAP 2003-03-08 Completed [facility] of 00:00:00 [facility] HIB 4 Dose Schedule 2003-03-08 Completed Unive rsity of 00:00:00 [facility] Pneumococcal 13 2003-03-08 Completed Universit y of Conjugate, PCV13 00:00:00 [place] [facility] (Prevnar 13) [facility] DTAP 2003-03-08 Completed [facility] of 00:00:00 [facility] HIB 4 Dose Schedule 2003-03-08 Completed Unive rsity of 00:00:00 [facility] Pneumococcal 13 2003-03-08 Completed Universit y of Conjugate, PCV13 00:00:00 [place] [facility] (Prevnar 13) [facility] DTAP 2003-03-08 Completed [facility] of 00:00:00 [facility] HIB 4 Dose Schedule 2003-03-08 Completed Unive rsity of 00:00:00 [facility] Pneumococcal 13 2003-03-08 Completed Universit y of Conjugate, PCV13 00:00:00 [place] [facility] (Prevnar 13) [facility] DTAP 2003-03-08 Completed [facility] of 00:00:00 [facility] HIB 4 Dose Schedule 2003-03-08 Completed Unive rsity of 00:00:00 [facility] Pneumococcal 13 2003-03-08 Completed Universit y of Conjugate, PCV13 00:00:00 [place] [facility] (Prevnar 13) [facility] DTAP 2003-03-08 Completed [facility] of 00:00:00 [facility] MMR 2002-10-14 Completed [facility] of 00:00:00 [facility] Pneumococcal 13 2002-10-14 Completed Universit y of Conjugate, PCV13 00:00:00 [place] [facility] (Prevnar 13) [facility] Varicella 2002-10-14 Completed [facility] (varivax)(chicken 00:00:00 [facility] pox) [facility] MMR 2002-10-14 Completed [facility] of 00:00:00 [facility] Pneumococcal 13 2002-10-14 Completed Universit y of Conjugate, PCV13 00:00:00 [place] [facility] (Prevnar 13) [facility] Varicella 2002-10-14 Completed [facility] (varivax)(chicken 00:00:00 [facility] 2002-10-14 Completed [facility] 00:00:00 [facility] Pneumococcal 13 2002-10-14 Completed Universit y of Conjugate, PCV13 00:00:00 [facility] (Prevnar 13) [facility] Varicella 2002-10-14 Completed [facility] (varivax)(chicken 00:00:00 [facility] pox) [facility] MMR 2002-10-14 Completed [facility] of 00:00:00 [facility] Pneumococcal 13 2002-10-14 Completed Universit y of Conjugate, PCV13 00:00:00 [facility] (Prevnar 13) [facility] Varicella 2002-10-14 Completed [facility] (varivax)(chicken 00:00:00 [facility] pox) [facility] MMR 2002-10-14 Completed [facility] of 00:00:00 [facility] Pneumococcal 13 2002-10-14 Completed Universit y of Conjugate, PCV13 00:00:00 [facility] (Prevnar 13) [facility] Varicella 2002-10-14 Completed [facility] (varivax)(chicken 00:00:00 [facility] pox) [facility] MMR 2002-10-14 Completed [facility] of 00:00:00 [facility] Pneumococcal 13 2002-10-14 Completed Universit y of Conjugate, PCV13 00:00:00 [facility] (Prevnar 13) [facility] Varicella 2002-10-14 Completed [facility] (varivax)(chicken 00:00:00 [facility]ox[facility] 2002-10-14 Completed [facility] 00:00:00 [facility] Pneumococcal 13 2002-10-14 Completed [facility]it y of Conjugate, PCV13 00:00:00 [place] [facility] (Prevnar 13) [facility] Varicella 2002-10-14 Completed [facility] (varivax)(chicken 00:00:00 [facility] pox) [facility] 2002-10-14 Completed [facility] 00:00:00 [facility] Pneumococcal 13 2002-10-14 Completed [facility]it y of Conjugate, PCV13 00:00:00 [place] [facility] (Prevnar 13) [facility] Varicella 2002-10-14 Completed [facility] (varivax)(chicken 00:00:00 [facility] pox) [facility] 2002-10-14 Completed [facility] 00:00:00 [facility] Pneumococcal 13 2002-10-14 Completed [facility]it y of Conjugate, PCV13 00:00:00 [place] [facility] (Prevnar 13) [facility] Varicella 2002-10-14 Completed [facility] (varivax)(chicken 00:00:00 [facility] pox) [facility] 2002-10-14 Completed [facility] 00:00:00 [facility] Pneumococcal 13 2002-10-14 Completed [facility]it y of Conjugate, PCV13 00:00:00 [place] [facility] (Prevnar 13) [facility] Varicella 2002-10-14 Completed [facility] (varivax)(chicken 00:00:00 [facility] pox) [facility] 2002-10-14 Completed [facility] 00:00:00 [facility] Pneumococcal 13 2002-10-14 Completed Universit y of Conjugate, PCV13 00:00:00 [facility] (Prevnar 13) [facility] Varicella 2002-10-14 Completed [facility] (varivax)(chicken 00:00:00 [facility] pox) [facility] 2002-10-14 Completed [facility] 00:00:00 [facility] Pneumococcal 13 2002-10-14 Completed Universit y of Conjugate, PCV13 00:00:00 [facility] (Prevnar 13) [facility] Varicella 2002-10-14 Completed [facility] (varivax)(chicken 00:00:00 [facility] pox) [facility] 2002-10-14 Completed [facility] 00:00:00 [facility] Pneumococcal 13 2002-10-14 Completed [facility]it y of Conjugate, PCV13 00:00:00 [place] [facility] (Prevnar 13) Branch Varicella 2002-10-14 Completed [facility] (varivax)(chicken 00:00:00 [facility] pox) [facility] MMR 2002-10-14 Completed [facility] 00:00:00 [facility] Pneumococcal 13 2002-10-14 Completed Universit y of Conjugate, PCV13 00:00:00 [place] [facility] (Prevnar 13) [facility] Varicella 2002-10-14 Completed [facility] (varivax)(chicken 00:00:00 [facility] pox) [facility] MMR 2002-10-14 Completed [facility] 00:00:00 [facility] Pneumococcal 13 2002-10-14 Completed Universit y of Conjugate, PCV13 00:00:00 [place] [facility] (Prevnar 13) [facility] Varicella 2002-10-14 Completed [facility] (varivax)(chicken 00:00:00 [facility] pox) [facility] MMR 2002-10-14 Completed [facility] of 00:00:00 [facility] Pneumococcal 13 2002-10-14 Completed Universit y of Conjugate, PCV13 00:00:00 [facility] dical (Prevnar 13) Branch Varicella 2002-10-14 Completed [facility] (varivax)(chicken 00:00:00 [facility] pox) [facility] Hep B, Adol or Pedi 2002-07-21 Completed Unive rsity of Dosage 00:00:00 [facility] Hep B, Adol or Pedi 2002-07-21 Completed Unive rsity of Dosage 00:00:00 [facility] Hep B, Adol or Pedi 2002-07-21 Completed Unive rsity of Dosage 00:00:00 [facility] Hep B, Adol or Pedi 2002-07-21 Completed Unive rsity of Dosage 00:00:00 [facility] Hep B, Adol or Pedi 2002-07-21 Completed Unive rsity of Dosage 00:00:00 [facility] Hep B, Adol or Pedi 2002-07-21 Completed Unive rsity of Dosage 00:00:00 [facility] Hep B, Adol or Pedi 2002-07-21 Completed Unive rsity of Dosage 00:00:00 [facility] Hep B, Adol or Pedi 2002-07-21 Completed Unive rsity of Dosage 00:00:00 [facility] Hep B, Adol or Pedi 2002-07-21 Completed Unive rsity of Dosage 00:00:00 [facility] Hep B, Adol or Pedi 2002-07-21 Completed Unive rsity of Dosage 00:00:00 [facility] Hep B, Adol or Pedi 2002-07-21 Completed Unive rsity of Dosage 00:00:00 [facility] Hep B, Adol or Pedi 2002-07-21 Completed Unive rsity of Dosage 00:00:00 [facility] Hep B, Adol or Pedi 2002-07-21 Completed Unive rsity of Dosage 00:00:00 [facility] Hep B, Adol or Pedi 2002-07-21 Completed Unive rsity of Dosage 00:00:00 [facility] Hep B, Adol or Pedi 2002-07-21 Completed Unive rsity of Dosage 00:00:00 [facility] Hep B, Adol or Pedi 2002-07-21 Completed Unive rsity of Dosage 00:00:00 [facility] Polio (IPV/OPV) 2002-04-13 Completed Universit y of 00:00:00 [facility] HIB 4 Dose Schedule 2002-04-13 Completed Unive rsity of 00:00:00 [facility] Pneumococcal 13 2002-04-13 Completed Universit y of Conjugate, PCV13 00:00:00 [facility] dical (Prevnar 13) Branch DTAP 2002-04-13 Completed [facility] of 00:00:00 [facility] Polio (IPV/OPV) 2002-04-13 Completed Universit y of 00:00:00 [facility] HIB 4 Dose Schedule 2002-04-13 Completed Unive rsity of 00:00:00 [facility] Pneumococcal 13 2002-04-13 Completed Universit y of Conjugate, PCV13 00:00:00 [facility] dical (Prevnar 13) Branch DTAP 2002-04-13 Completed [facility] of 00:00:00 [facility] Polio (IPV/OPV) 2002-04-13 Completed Universit y of 00:00:00 [facility] HIB 4 Dose Schedule 2002-04-13 Completed Unive rsity of 00:00:00 [facility] Pneumococcal 13 2002-04-13 Completed Universit y of Conjugate, PCV13 00:00:00 [facility] dical (Prevnar 13) Branch DTAP 2002-04-13 Completed [facility] of 00:00:00 [facility] Polio (IPV/OPV) 2002-04-13 Completed Universit y of 00:00:00 [facility] HIB 4 Dose Schedule 2002-04-13 Completed Unive rsity of 00:00:00 [facility] Pneumococcal 13 2002-04-13 Completed [facility]it y of Conjugate, PCV13 00:00:00 [place] [facility] (Prevnar 13) [facility] DTAP 2002-04-13 Completed [facility] of 00:00:00 [facility] Polio (IPV/OPV) 2002-04-13 Completed Universit y of 00:00:00 [facility] HIB 4 Dose Schedule 2002-04-13 Completed Unive rsity of 00:00:00 [facility] Pneumococcal 13 2002-04-13 Completed [facility]it [facility] of Conjugate, PCV13 00:00:00 [facility] (Prevnar 13) [facility] DTAP 2002-04-13 Completed [facility] of 00:00:00 [facility] Polio (IPV/OPV) 2002-04-13 Completed Universit y of 00:00:00 [facility] HIB 4 Dose Schedule 2002-04-13 Completed Unive rsity of 00:00:00 [facility] Pneumococcal 13 2002-04-13 Completed [facility]it y of Conjugate, PCV13 00:00:00 [facility] (Prevnar 13) [facility] DTAP 2002-04-13 Completed [facility] of 00:00:00 [facility] Polio (IPV/OPV) 2002-04-13 Completed Universit [facility] of 00:00:00 [facility] HIB 4 Dose Schedule 2002-04-13 Completed Unive rsity of 00:00:00 [facility] Pneumococcal 13 2002-04-13 Completed [facility]it [facility] of Conjugate, PCV13 00:00:00 [facility] (Prevnar 13) [facility] DTAP 2002-04-13 Completed [facility] of 00:00:00 [facility] Polio (IPV/OPV) 2002-04-13 Completed [facility]it [facility] of 00:00:00 [facility] HIB 4 Dose Schedule 2002-04-13 Completed Unive rsity of 00:00:00 [facility] Pneumococcal 13 2002-04-13 Completed [facility]it [facility] of Conjugate, PCV13 00:00:00 [facility] (Prevnar 13) Branch DTAP 2002-04-13 Completed [facility] of 00:00:00 [facility] Polio (IPV/OPV) 2002-04-13 Completed [facility]it y of 00:00:00 [facility] HIB 4 Dose Schedule 2002-04-13 Completed Unive rsity of 00:00:00 [facility] Pneumococcal 13 2002-04-13 Completed [facility] of Conjugate, PCV13 00:00:00 [facility] (Prevnar 13) Branch DTAP 2002-04-13 Completed [facility] 00:00:00 [facility] Polio (IPV/OPV) 2002-04-13 Completed [facility] of 00:00:00 [facility] HIB 4 Dose Schedule 2002-04-13 Completed Unive rsity of 00:00:00 [facility] Pneumococcal 13 2002-04-13 Completed [facility] of Conjugate, PCV13 00:00:00 [place] [facility] (Prevnar 13) Branch DTAP 2002-04-13 Completed [facility] 00:00:00 [facility] Polio (IPV/OPV) 2002-04-13 Completed Universit y of 00:00:00 [facility] HIB 4 Dose Schedule 2002-04-13 Completed Unive rsity of 00:00:00 [facility] Pneumococcal 13 2002-04-13 Completed [facility]it [facility] of Conjugate, PCV13 00:00:00 [place] [facility] (Prevnar 13) Branch DTAP 2002-04-13 Completed [facility] 00:00:00 [facility] Polio (IPV/OPV) 2002-04-13 Completed Universit [facility] of 00:00:00 [facility] HIB 4 Dose Schedule 2002-04-13 Completed Unive rsity of 00:00:00 [facility] Pneumococcal 13 2002-04-13 Completed Universit y of Conjugate, PCV13 00:00:00 [facility] (Prevnar 13) Branch DTAP 2002-04-13 Completed [facility] of 00:00:00 [facility] Polio (IPV/OPV) 2002-04-13 Completed [facility]it y of 00:00:00 [facility] HIB 4 Dose Schedule 2002-04-13 Completed Unive rsity of 00:00:00 [facility] Pneumococcal 13 2002-04-13 Completed [facility]it y of Conjugate, PCV13 00:00:00 [facility] (Prevnar 13) [facility] DTAP 2002-04-13 Completed [facility] of 00:00:00 [facility] Polio (IPV/OPV) 2002-04-13 Completed [facility]it [facility] of 00:00:00 [facility] HIB 4 Dose Schedule 2002-04-13 Completed Unive rsity of 00:00:00 [facility] Pneumococcal 13 2002-04-13 Completed [facility]it y of Conjugate, PCV13 00:00:00 [facility] (Prevnar 13) Branch DTAP 2002-04-13 Completed [facility] of 00:00:00 [facility] Polio (IPV/OPV) 2002-04-13 Completed [facility]it [facility] of 00:00:00 [facility] HIB 4 Dose Schedule 2002-04-13 Completed Unive rsity of 00:00:00 [facility] Pneumococcal 13 2002-04-13 Completed [facility]it y of Conjugate, PCV13 00:00:00 [facility] (Prevnar 13) [facility] DTAP 2002-04-13 Completed [facility] of 00:00:00 [facility] Polio (IPV/OPV) 2002-04-13 Completed [facility]it [facility] of 00:00:00 [facility] HIB 4 Dose Schedule 2002-04-13 Completed Unive rsity of 00:00:00 [facility] Pneumococcal 13 2002-04-13 Completed [facility] of Conjugate, PCV13 00:00:00 [facility] (Prevnar 13) [facility] DTAP 2002-04-13 Completed [facility] of 00:00:00 [facility] Polio (IPV/OPV) 2002-02-10 Completed [facility]it [facility] of 00:00:00 [facility] HIB 4 Dose Schedule 2002-02-10 Completed [facility]ive [facility]ity of 00:00:00 [facility] DTAP 2002-02-10 Completed [facility] of 00:00:00 [facility] Polio (IPV/OPV) 2002-02-10 Completed [facility]it [facility] of 00:00:00 [facility] HIB 4 Dose Schedule 2002-02-10 Completed [facility]ive rsity of 00:00:00 [facility] DTAP 2002-02-10 Completed [facility] of 00:00:00 [facility] Polio (IPV/OPV) 2002-02-10 Completed [facility]it [facility] of 00:00:00 [facility] HIB 4 Dose Schedule 2002-02-10 Completed Unive rsity of 00:00:00 [facility] DTAP 2002-02-10 Completed [facility] of 00:00:00 [facility] Polio (IPV/OPV) 2002-02-10 Completed [facility] 00:00:00 [facility] HIB 4 Dose Schedule 2002-02-10 Completed [facility]ive rsity of 00:00:00 [facility] DTAP 2002-02-10 Completed [facility] 00:00:00 [facility] Polio (IPV/OPV) 2002-02-10 Completed [facility] 00:00:00 [facility] HIB 4 Dose Schedule 2002-02-10 Completed [facility]ive rsity of 00:00:00 [facility] DTAP 2002-02-10 Completed [facility] 00:00:00 [facility] Polio (IPV/OPV) 2002-02-10 Completed [facility] of 00:00:00 [facility] HIB 4 Dose Schedule 2002-02-10 Completed [facility]ive [facility]ity of 00:00:00 [facility] DTAP 2002-02-10 Completed [facility] of 00:00:00 [facility] Polio (IPV/OPV) 2002-02-10 Completed [facility] of 00:00:00 [facility] HIB 4 Dose Schedule 2002-02-10 Completed [facility]ive [facility]ity of 00:00:00 [facility] DTAP 2002-02-10 Completed [facility] 00:00:00 [facility] Polio (IPV/OPV) 2002-02-10 Completed [facility] 00:00:00 [facility] HIB 4 Dose Schedule 2002-02-10 Completed [facility]ive [facility]ity of 00:00:00 [facility] [place] DTAP 2002-02-10 Completed [facility] of 00:00:00 [facility] Polio (IPV/OPV) 2002-02-10 Completed [facility] of 00:00:00 [facility] HIB 4 Dose Schedule 2002-02-10 Completed [facility]ive [facility]ity of 00:00:00 [facility] DTAP 2002-02-10 Completed [facility] 00:00:00 [facility] Polio (IPV/OPV) 2002-02-10 Completed [facility] of 00:00:00 [facility] HIB 4 Dose Schedule 2002-02-10 Completed [facility]ive rsity of 00:00:00 [facility] DTAP 2002-02-10 Completed [facility] 00:00:00 [facility] Polio (IPV/OPV) 2002-02-10 Completed [facility] of 00:00:00 [facility] HIB 4 Dose Schedule 2002-02-10 Completed [facility]ive [facility]ity of 00:00:00 [facility] DTAP 2002-02-10 Completed [facility] of 00:00:00 [facility] Polio (IPV/OPV) 2002-02-10 Completed [facility] of 00:00:00 [facility] HIB 4 Dose Schedule 2002-02-10 Completed [facility]ive rsity of 00:00:00 [facility] DTAP 2002-02-10 Completed [facility] of 00:00:00 [facility] Polio (IPV/OPV) 2002-02-10 Completed [facility] of 00:00:00 [facility] HIB 4 Dose Schedule 2002-02-10 Completed [facility]ive rsity of 00:00:00 [facility] DTAP 2002-02-10 Completed [facility] of 00:00:00 [facility] Polio (IPV/OPV) 2002-02-10 Completed [facility] of 00:00:00 [facility] HIB 4 Dose Schedule 2002-02-10 Completed [facility]ive rsity of 00:00:00 [facility] DTAP 2002-02-10 Completed [facility] of 00:00:00 [facility] Polio (IPV/OPV) 2002-02-10 Completed [facility] of 00:00:00 [facility] HIB 4 Dose Schedule 2002-02-10 Completed [facility]ive rsity of 00:00:00 [facility] DTAP 2002-02-10 Completed [facility] of 00:00:00 [facility] Polio (IPV/OPV) 2002-02-10 Completed [facility] of 00:00:00 [facility] HIB 4 Dose Schedule 2002-02-10 Completed [facility]ive rsity of 00:00:00 [facility] DTAP 2002-02-10 Completed [facility] of 00:00:00 [facility] Polio (IPV/OPV) 2001 Completed [facility] of 00:00:00 [facility] HIB 4 Dose Schedule 2001 Completed [facility]ive rsity of 00:00:00 [facility] Hep B, Adol or Pedi 2001 Completed Unive rsity of Dosage 00:00:00 [facility] Pneumococcal 13 2001 Completed Universit y of Conjugate, PCV13 00:00:00 [facility] dical (Prevnar 13) Branch DTAP 2001 Completed [facility] of 00:00:00 [facility] Polio (IPV/OPV) 2001 Completed [facility] of 00:00:00 [facility] HIB 4 Dose Schedule 2001 Completed Unive rsity of 00:00:00 [facility] Hep B, Adol or Pedi 2001 Completed Unive rsity of Dosage 00:00:00 [facility] Pneumococcal 13 2001 Completed Universit y of Conjugate, PCV13 00:00:00 [facility] dical (Prevnar 13) Branch DTAP 2001 Completed [facility] of 00:00:00 [facility] Polio (IPV/OPV) 2001 Completed [facility] of 00:00:00 [facility] HIB 4 Dose Schedule 2001 Completed [facility]ive rsity of 00:00:00 [facility] Hep B, Adol or Pedi 2001 Completed [facility]ive rsity of Dosage 00:00:00 [facility] Pneumococcal 13 2001 Completed [facility]it [facility] of Conjugate, PCV13 00:00:00 [facility] dical (Prevnar 13) Branch DTAP 2001 Completed [facility] of 00:00:00 [facility] Polio (IPV/OPV) 2001 Completed [facility] of 00:00:00 [facility] HIB 4 Dose Schedule 2001 Completed [facility]ive rsity of 00:00:00 [facility] Hep B, Adol or Pedi 2001 Completed Unive rsity of Dosage 00:00:00 [facility] Pneumococcal 13 2001 Completed [facility] of Conjugate, PCV13 00:00:00 [facility] dical (Prevnar 13) Branch DTAP 2001 Completed [facility] of 00:00:00 [facility] Polio (IPV/OPV) 2001 Completed [facility] of 00:00:00 [facility] HIB 4 Dose Schedule 2001 Completed [facility]ive rsity of 00:00:00 [facility] Hep B, Adol or Pedi 2001 Completed Unive rsity of Dosage 00:00:00 [facility] Pneumococcal 13 2001 Completed [facility]it [facility] of Conjugate, PCV13 00:00:00 [facility] dical (Prevnar 13) Branch DTAP 2001 Completed [facility] of 00:00:00 [facility] Polio (IPV/OPV) 2001 Completed [facility] of 00:00:00 [facility] HIB 4 Dose Schedule 2001 Completed [facility]ive rsity of 00:00:00 [facility] Hep B, Adol or Pedi 2001 Completed Unive rsity of Dosage 00:00:00 [facility] Pneumococcal 13 2001 Completed [facility] of Conjugate, PCV13 00:00:00 [facility] dical (Prevnar 13) Branch DTAP 2001 Completed [facility] of 00:00:00 [facility] Polio (IPV/OPV) 2001 Completed [facility] of 00:00:00 [facility] HIB 4 Dose Schedule 2001 Completed Unive rsity of 00:00:00 [facility] Hep B, Adol or Pedi 2001 Completed Unive rsity of Dosage 00:00:00 [facility] Pneumococcal 13 2001 Completed [facility]it [facility] of Conjugate, PCV13 00:00:00 [facility] dical (Prevnar 13) Branch DTAP 2001 Completed [facility] of 00:00:00 [facility] Polio (IPV/OPV) 2001 Completed [facility] of 00:00:00 [facility] HIB 4 Dose Schedule 2001 Completed Unive rsity of 00:00:00 [facility] Hep B, Adol or Pedi 2001 Completed Unive rsity of Dosage 00:00:00 [facility] Pneumococcal 13 2001 Completed [facility]it [facility] of Conjugate, PCV13 00:00:00 [facility] dical (Prevnar 13) Branch DTAP 2001 Completed [facility] of 00:00:00 [facility] Polio (IPV/OPV) 2001 Completed [facility] of 00:00:00 [facility] HIB 4 Dose Schedule 2001 Completed Unive rsity of 00:00:00 [facility] Hep B, Adol or Pedi 2001 Completed Unive rsity of Dosage 00:00:00 [facility] Pneumococcal 13 2001 Completed [facility]it [facility] of Conjugate, PCV13 00:00:00 [facility] dical (Prevnar 13) Branch DT 2001 Completed [facility] of 00:00:00 [facility] Polio (IPV/OPV) 2001 Completed [facility] of 00:00:00 [facility] HIB 4 Dose Schedule 2001 Completed Unive rsity of 00:00:00 [facility] Hep B, Adol or Pedi 2001 Completed Unive rsity of Dosage 00:00:00 [facility] Pneumococcal 13 2001 Completed [facility]it [facility] of Conjugate, PCV13 00:00:00 [facility] dical (Prevnar 13) Branch DTAP 2001 Completed [facility] of 00:00:00 [facility] Polio (IPV/OPV) 2001 Completed [facility] of 00:00:00 [facility] HIB 4 Dose Schedule 2001 Completed [facility]ive rsity of 00:00:00 [facility] Hep B, Adol or Pedi 2001 Completed Unive rsity of Dosage 00:00:00 [facility] Pneumococcal 13 2001 Completed [facility]it [facility] of Conjugate, PCV13 00:00:00 [facility] dical (Prevnar 13) Branch DTAP 2001 Completed [facility] of 00:00:00 [facility] Polio (IPV/OPV) 2001 Completed [facility] of 00:00:00 [facility] HIB 4 Dose Schedule 2001 Completed [facility]ive rsity of 00:00:00 [facility] Hep B, Adol or Pedi 2001 Completed Unive rsity of Dosage 00:00:00 [facility] Pneumococcal 13 2001 Completed [facility] of Conjugate, PCV13 00:00:00 [facility] dical (Prevnar 13) Branch DTAP 2001 Completed [facility] of 00:00:00 [facility] Polio (IPV/OPV) 2001 Completed [facility] of 00:00:00 [facility] HIB 4 Dose Schedule 2001 Completed [facility]ive rsity of 00:00:00 [facility] Hep B, Adol or Pedi 2001 Completed [facility]ive [facility]ity of Dosage 00:00:00 [facility] Pneumococcal 13 2001 Completed [facility] of Conjugate, PCV13 00:00:00 [facility] dical (Prevnar 13) Branch DTAP 2001 Completed [facility] of 00:00:00 [facility] Polio (IPV/OPV) 2001 Completed [facility] of 00:00:00 [facility] HIB 4 Dose Schedule 2001 Completed [facility]ive rsity of 00:00:00 [facility] Hep B, Adol or Pedi 2001 Completed [facility]ive [facility]ity of Dosage 00:00:00 [facility] Pneumococcal 13 2001 Completed [facility] of Conjugate, PCV13 00:00:00 [place] [facility] (Prevnar 13) [facility] DTAP 2001 Completed [facility] 00:00:00 [facility] Polio (IPV/OPV) 2001 Completed [facility] of 00:00:00 [facility] HIB 4 Dose Schedule 2001 Completed Unive rsity of 00:00:00 [facility] Hep B, Adol or Pedi 2001 Completed Unive rsity of Dosage 00:00:00 [facility] Pneumococcal 13 2001 Completed Univers[facility] of Conjugate, PCV13 00:00:00 [facility] dical (Prevnar 13) Branch DTAP 2001 Completed [facility] of 00:00:00 [facility] Polio (IPV/OPV) 2001 Completed [facility] of 00:00:00 [facility] HIB 4 Dose Schedule 2001 Completed Unive rsity of 00:00:00 [facility] Hep B, Adol or Pedi 2001 Completed Unive rsity of Dosage 00:00:00 [facility] Pneumococcal 13 2001 Completed [facility] of Conjugate, PCV13 00:00:00 [facility] dical (Prevnar 13) Branch DTAP 2001 Completed [facility] 00:00:00 [facility] Hep B, Adol or Pedi 2001 Completed Unive rsity of Dosage 00:00:00 [facility] Hep B, Adol or Pedi 2001 Completed Unive rsity of Dosage 00:00:00 [facility] Hep B, Adol or Pedi 2001 Completed [facility]ive rsity of Dosage 00:00:00 [facility] Hep B, Adol or Pedi 2001 Completed Unive rsity of Dosage 00:00:00 [facility] Hep B, Adol or Pedi 2001 Completed [facility]ive rs[facility] of Dosage 00:00:00 [facility] Hep B, Adol or Pedi 2001 Completed Unive rsity of Dosage 00:00:00 [facility] Hep B, Adol or Pedi 2001 Completed [facility]ive rsity of Dosage 00:00:00 [facility] Hep B, Adol or Pedi 2001 Completed Unive rsity of Dosage 00:00:00 [facility] Hep B, Adol or Pedi 2001 Completed Unive [facility]ity of Dosage 00:00:00 [facility] Hep B, Adol or Pedi 2001 Completed Unive rsity of Dosage 00:00:00 [facility] Hep B, Adol or Pedi 2001 Completed Unive [facility]ity of Dosage 00:00:00 [facility] Hep B, Adol or Pedi 2001 Completed Unive rsity of Dosage 00:00:00 [facility] Hep B, Adol or Pedi 2001 Completed [facility]ive rsity of Dosage 00:00:00 [facility] Hep B, Adol or Pedi 2001 Completed [facility]ive rsity of Dosage 00:00:00 [facility] Hep B, Adol or Pedi 2001 Completed [facility]ive rsity of Dosage 00:00:00 [facility] Hep B, Adol or Pedi 2001 Completed Unive [facility]ity of Dosage 00:00:00 [facility] TDAP (ADACEL) Unknown Completed [facility] HPV9 Unknown Completed [facility] HPV9 Unknown Completed [facility] HPV9 Unknown Completed [facility] Meningococcal Unknown Completed [facility] TDAP Unknown Completed [facility] Varicella Unknown Completed [facility] (varivax[facility] [place] [facility] pox) Branch Varicella Unknown Completed [facility] (varivax[facility] [place] [facility] pox) [facility] DTAP Unknown Completed [facility] DTAP Unknown Completed [facility] DTAP Unknown Completed [facility] DTAP Unknown Completed [facility] DTAP Unknown Completed [facility] HEPATITIS A Unknown Completed [facility] HEPATITIS A Unknown Completed [facility] MMR Unknown Completed [facility] MMR Unknown Completed [facility] Polio (IPV/OPV) Unknown Completed [facility] Polio (IPV/OPV) Unknown Completed [facility] of [facility] Polio (IPV/OPV) Unknown Completed [facility] of [facility] Polio (IPV/OPV) Unknown Completed [facility] of [facility] HIB 4 Dose Schedule Unknown Completed Unive rsity of [facility] HIB 4 Dose Schedule Unknown Completed Unive rsity of [facility] HIB 4 Dose Schedule Unknown Completed Unive rsity of [facility] HIB 4 Dose Schedule Unknown Completed Unive rsity of [facility] Hep B, Adol or Pedi Unknown Completed Unive [facility]ity of Dosage [facility] Hep B, Adol or Pedi Unknown Completed [facility]ive [facility]ity of Dosage [facility] Hep B, Adol or Pedi Unknown Completed [facility]ive [facility]ity of Dosage [facility] Pneumococcal 13 Unknown Completed Universit y of Conjugate, PCV13 [facility] dical (Prevnar 13) Branch Pneumococcal 13 Unknown Completed [facility] of Conjugate, PCV13 [facility] dical (Prevnar 13) Branch Pneumococcal 13 Unknown Completed [facility] of Conjugate, PCV13 [facility] dical (Prevnar 13) Branch Pneumococcal 13 Unknown Completed [facility] of Conjugate, PCV13 [facility] dical (Prevnar 13) Branch SARS-COV-2 COVID-19 Unknown Completed Unive rsity of [employer] [facility] VACCINE (MANNING TOP) Branch SARS-COV-2 COVID-19 Unknown Completed Unive rsity of [employer] [facility] VACCINE (MANNING TOP) Branch Influenza Virus Unknown Completed Universit y of Vaccine Quad IM, [facility] dical Preserv and ABX Branch Free 6 MO-64 YRS (FLUCELVAX) TDAP (ADACEL) Unknown Completed [facility] HPV9 Unknown Completed [facility] HPV9 Unknown Completed [facility] HPV9 Unknown Completed [facility] Meningococcal Unknown Completed [facility] TDAP Unknown Completed [facility] Varicella Unknown Completed [facility] (varivax)(chicken [place] [facility] pox) Branch Varicella Unknown Completed [facility] (varivax)([facility] [place] [facility] pox) [facility] DTAP Unknown Completed [facility] DTAP Unknown Completed [facility] DTAP Unknown Completed [facility] DTAP Unknown Completed [facility] DTAP Unknown Completed [facility] HEPATITIS A Unknown Completed [facility] HEPATITIS A Unknown Completed [facility] MMR Unknown Completed [facility] MMR Unknown Completed [facility] Polio (IPV/OPV) Unknown Completed [facility] of [facility] Polio (IPV/OPV) Unknown Completed [facility] of [facility] Polio (IPV/OPV) Unknown Completed [facility] of [facility] Polio (IPV/OPV) Unknown Completed [facility] of [facility] HIB 4 Dose Schedule Unknown Completed Unive rsity of [facility] HIB 4 Dose Schedule Unknown Completed Unive rsity of [facility] HIB 4 Dose Schedule Unknown Completed Unive rsity of [facility] HIB 4 Dose Schedule Unknown Completed Unive rsity of [facility] Hep B, Adol or Pedi Unknown Completed Unive rsity of Dosage [facility] Hep B, Adol or Pedi Unknown Completed Unive rsity of Dosage [facility] Hep B, Adol or Pedi Unknown Completed [facility]ive rsity of Dosage [facility] Pneumococcal 13 Unknown Completed [facility]it y of Conjugate, PCV13 [facility] dical (Prevnar 13) Branch Pneumococcal 13 Unknown Completed [facility] of Conjugate, PCV13 [facility] dical (Prevnar 13) Branch Pneumococcal 13 Unknown Completed [facility] of Conjugate, PCV13 [facility] dical (Prevnar 13) Branch Pneumococcal 13 Unknown Completed [facility] of Conjugate, PCV13 [facility] dical (Prevnar 13) Branch SARS-COV-2 COVID-19 Unknown Completed Unive rsity of [employer] [facility] VACCINE (MANNING TOP) Branch SARS-COV-2 COVID-19 Unknown Completed Unive rsity of [employer] [facility] VACCINE (MANNING TOP) Branch Influenza Virus Unknown Completed [facility] of Vaccine [facility] IM, [facility] dical Preserv and ABX Branch Free 6 MO-64 YRS (FLUCELVAX) TDAP (ADACEL) Unknown Completed [facility] HPV9 Unknown Completed [facility] HPV9 Unknown Completed [facility] HPV9 Unknown Completed [facility] Meningococcal Unknown Completed [facility] TDAP Unknown Completed [facility] Varicella Unknown Completed [facility] (varivax)(chicken [place] [facility] pox) Branch Varicella Unknown Completed [facility] (varivax)(chicken [place] [facility] pox) Branch DTAP Unknown Completed [facility] DTAP Unknown Completed [facility] DTAP Unknown Completed [facility] DTAP Unknown Completed [facility] DTAP Unknown Completed [facility] HEPATITIS A Unknown Completed [facility] HEPATITIS A Unknown Completed [facility] MMR Unknown Completed [facility] MMR Unknown Completed [facility] Polio (IPV/OPV) Unknown Completed [facility] y [facility] Unknown [facility] Unknown [facility] Polio (IPV/OPV) Unknown Completed [facility] y [facility] HIB 4 Dose Schedule Unknown Completed Unive rsity of [facility] HIB 4 Dose Schedule Unknown Completed Unive rsity of [facility] HIB 4 Dose Schedule Unknown Completed [facility]ive [facility]ity of [facility] HIB 4 Dose Schedule Unknown Completed Unive rsity [facility] Hep B, Adol or Pedi Unknown Completed Unive rsity of Dosage [facility] Hep B, Adol or Pedi Unknown Completed [facility] of Dosage [facility] Hep B, Adol or Pedi Unknown Completed [facility] of Dosage [facility] Pneumococcal 13 Unknown Completed [facility]it y of Conjugate, PCV13 [facility] dical (Prevnar 13) Branch Pneumococcal 13 Unknown Completed [facility] of Conjugate, PCV13 [facility] dical (Prevnar 13) Branch Pneumococcal 13 Unknown Completed [facility] of Conjugate, PCV13 [facility] dical (Prevnar 13) Branch Pneumococcal 13 Unknown Completed [facility] of Conjugate, PCV13 [facility] dical (Prevnar 13) Branch SARS-COV-2 COVID-19 Unknown Completed Unive rsity of [employer] [facility] VACCINE (MANNING TOP) Branch SARS-COV-2 COVID-19 Unknown Completed Unive rsity of PFIZER JANETT-SUCROSE [facility] VACCINE (MANNING TOP) Branch Influenza Virus Unknown Completed Universit y of Vaccine Quad IM, Formerly [facility] dical Preserv and ABX Branch Free 6 MO-64 YRS (FLUCELVAX) Vital Signs Vital Name Observation Time Observation Value Comments Source Systolic blood 2023-08-08 18:59:00 111 mm[Hg] Univer sity of pressure [facility] Diastolic blood 2023-08-08 18:59:00 74 mm[Hg] Unive rsity of pressure [facility] Heart rate 2023-08-08 18:59:00 65 /min [facility] [place] [facility] Body temperature 2023-08-08 18:59:00 36.61 Dee [facility] [place] [facility] Respiratory rate 2023-08-08 18:59:00 16 /min [facility] [place] [facility] Body height 2023-08-08 18:59:00 167.6 cm [facility] [place] [facility] Body weight 2023-08-08 18:59:00 61.825 kg [facility] [place] [facility] BMI 2023-08-08 18:59:00 22.00 kg/m2 [facility] [place] [facility] Oxygen saturation in 2023-08-08 18:59:00 99 /min University of Arterial blood by [facility] Pulse oximetry Branch Systolic blood 2022-11-28 17:38:00 109 mm[Hg] Univer sity of pressure [place] [facility] Diastolic blood 2022-11-28 17:38:00 70 mm[Hg] Unive rsity of pressure [place] [facility] Heart rate 2022-11-28 17:38:00 92 /min [facility] [place] [facility] Respiratory rate 2022-11-28 17:38:00 18 /min Univ [facility] [place] [facility] Body height 2022-11-28 17:38:00 167.6 cm [facility] [place] [facility] Body weight 2022-11-28 17:38:00 58.968 kg [facility] [place] [facility] BMI 2022-11-28 17:38:00 20.98 kg/m2 [facility] [place] [facility] Systolic blood 2022-09-27 19:24:00 119 mm[Hg] Univer sity of [facility] [place] [facility] Diastolic blood 2022-09-27 19:24:00 85 mm[Hg] Unive rsity of pressure [place] [facility] Heart rate 2022-09-27 19:24:00 84 /min [facility] [place] [facility] Body temperature 2022-09-27 19:24:00 37 Dee [facility] [place] [facility] Body height 2022-09-27 19:24:00 162.6 cm [facility] [place] [facility] Body weight 2022-09-27 19:24:00 53.524 kg [facility] [place] [facility] BMI 2022-09-27 19:24:00 20.25 kg/m2 [facility] [place] [facility] Systolic blood 2022-06-28 20:56:00 107 mm[Hg] Univer sity of [facility] [place] [facility] Diastolic blood 2022-06-28 20:56:00 69 mm[Hg] Unive rsity of [facility] [place] [facility] Heart rate 2022-06-28 20:56:00 93 /min [facility] [place] [facility] Body height 2022-06-28 20:56:00 162.6 cm [facility] [place] [facility] Body weight 2022-06-28 20:56:00 53.978 kg [facility] [place] [facility] BMI 2022-06-28 20:56:00 20.43 kg/m2 Universi ty of [facility] Branch Systolic blood 2022-01-17 15:29:00 96 mm[Hg] Univer sity of pressure [place] [facility] Diastolic blood 2022-01-17 15:29:00 67 mm[Hg] Unive rsity of [facility] Heart rate 2022-01-17 15:29:00 90 /min [facility] [place] [facility] [place] Body temperature 2022-01-17 15:29:00 36.89 Dee Univ ersity of [facility] Branch Respiratory rate 2022-01-17 15:29:00 16 /min Univ ersity of [facility] Body height 2022-01-17 15:29:00 162.6 cm [facility] [place] [facility] [place] Body weight 2022-01-17 15:29:00 52.617 kg [facility] [place] [facility] [place] BMI 2022-01-17 15:29:00 19.91 kg/m2 Universi ty of [facility] Oxygen saturation in 2022-01-17 15:29:00 98 /min University of Arterial blood by [facility] Pulse oximetry Branch Systolic blood 2021-11-11 21:26:00 133 mm[Hg] Univer sity of pressure [facility] Diastolic blood 2021-11-11 21:26:00 80 mm[Hg] Unive rsity of pressure [facility] Heart rate 2021-11-11 21:26:00 82 /min Universi ty of [facility] Body temperature 2021-11-11 21:26:00 36.22 Dee Univ ersity of [facility] Body height 2021-11-11 21:26:00 165.1 cm [facility] Body weight 2021-11-11 21:26:00 54.148 kg [facility] BMI 2021-11-11 21:26:00 19.87 kg/m2 [facility] Oxygen saturation in 2021-11-11 21:26:00 100 /min [facility] Arterial blood by [facility] Pulse oximetry Branch Systolic blood 2021-10-26 15:30:00 94 mm[Hg] Univer sity of pressure [facility] Diastolic blood 2021-10-26 15:30:00 63 mm[Hg] Unive rsity of [facility] Heart rate 2021-10-26 15:30:00 90 /min [facility] Body weight 2021-10-26 15:30:00 53.978 kg [facility] Procedures Procedure Date / Time Performed Performing Clinician [facility] e ASSIGNMENT OF BENEFITS 2023-08-08 18:48:41 Doctor Unassigned, No [facility] FLU VACC ([id number]), 2022-06-28 21:03:13 Juancho Schultz [facility] 6 MO-64 YRS, .5ML, IM, Medical B ranch QUAD (FLUCELVAX) SARS-COV-2 COVID-19 2022-05-17 15:54:38 Doctor Unassigned, No [facility] [place] VACCINE [address] [place] [address] YRS+,0.3ML,IM (PFIZER - MANNING TOP) SARS-COV-2 COVID-19 2022-04-26 15:44:48 Doctor Unassigned, No [facility] [place] VACCINE [address] [place] [address] YRS+,0.3ML,IM (PFIZER - MANNING TOP) POCT MOLECULAR FLU 2022-01-17 15:36:00 Nely Argueta [facility] y [facility] POCT MOLECULAR STREP 2022-01-17 15:33:00 Nely Argueta [facility] ASSIGNMENT OF BENEFITS 2022-01-17 15:23:08 Doctor Unassigned, No [facility] Encounters Start End Encounter Admission Attending Care Care Encounter Source Date/Time Date/Time Type Type Clinicians Facility Department ID 2023-08-08 2023-08-08 [facility] AbdallaKwadwoShilpa [facility] 1.2.840.114 [id number] Univers 14:00:00 14:30:00 Visit Jyotsna storm 350.1.13.10 ity of [place] [phone] [address] 2023-08-08 2023-08-08 Outpatient R JYOTSNA TORREZ [facility] U [facility] [id number] Univers 14:00:00 14:00:00 JYOTSNA TORREZ ity of [facility] 2023-08-08 2023-08-08 Orders Doctor MANNY 1.2.840.114 [id number] Univers 00:00:00 00:00:00 Only Unassigned, RINA 350.1.13.10 ity of [place] [facility] 4.2.7.2.686 Thanh as [phone] [place] [address] Branch 2023-05-13 2023-05-13 Outpatient R TORREYZANA [facility] B [id number] Univers 15:00:00 15:00:00 TRIMANDYDENISE SPANN [facility] 2022-11-28 2022-11-28 Experiential Therapist Lab, Ang - [facility] 1.2.840.1 [id number] Univers 12:15:00 12:30:00 [facility] 350.1.13.1 0 ity of [place] 4.2.7.2.686 Thanh as DARIEL?BLEA [phone] [address] MEDICAL OFFICE BUILDING 2022-11-28 2022-11-28 Outpatient R TORREYMARIEL SPANNANDRESSA [facility] B [id number] Univers 11:15:00 11:44:21 TORREYDENISE SPANN [facility] 2022-11-28 2022-11-28 Office [facility] 1.2.840.114 [id number] Univers 11:15:00 11:44:21 Visit Denise ZAFAR 350.1.13.10 it y of [place] [id number] [address] 2022-09-272022-09-27 Outpatient R TATUMCHRISDOMITILA [facility] [id number] Univers 13:30:00 13:41:17 JUANCHO frazier [facility] 2022-09-27 2022-09-27 [facility] 1.2.840.114 [id number] Univers 13:30:00 13:41:17 Visit Juancho [facility] 350.1.13.10 it y of [place] 4.2.7.2.686 Thanh as DARIEL?BLEA [phone] [address] MEDICAL OFFICE [facility] 2022-06-29 2022-06-29 Telephone [facility] 1.2.840.114 [id number] Univers 00:00:00 00:00:00 Juancho [facility] 350.1.13.10 it y of [place] 4.2.7.2.686 Thanh as DARIEL?BLEA [phone] [address] OFFICE [facility] 2022-06-28 2022-06-28 Office [facility] 1.2.840.114 [id number] Univers 16:00:00 16:15:00 Visit Juancho [facility] 350.1.13.10 it y of [place] 4.2.7.2.686 Thanh as DARIEL?BLEA [phone] [address] OFFICE [facility] 2022-06-28 2022-06-28 Outpatient R ANTOINE [facility] [id number] Univers 16:00:00 16:00:00 JUANCHO frazier [facility] 2022-05-17 2022-05-17 Imm/Inj Vaccine, Ang Db Cbc [facility] 1. 2.840.114 [id number] Univers 10:00:00 10:10:00 Visit Juancho Schultz [facility] 350.1.13 .10 ity of [place] 4.2.7.2.686 Thanh as DARIEL?BLEA [id number] [address] OFFICE [facility] 2022-05-17 2022-05-17 Outpatient R BISIDOMITILA [facility] [id number] Univers 10:00:00 10:00:00 JUANCHO freddie [facility] 2022-04-262022-04-26 Imm/Inj Vaccine, Ang Db Cbc Fam [facility] 1. 2.840.114 [id number] Univers 10:00:00 10:10:00 Visit Juancho Schultz [facility] 350.1.13 .10 ity of [place] 4.2.7.2.686 Thanh as DARIEL?BLEA [phone] [facility] [address] [place] MEDICAL OFFICE BUILDING 2022-04-26 2022-04-26 Outpatient R ANTOINE [facility] [id number] Univers 10:00:00 10:00:00 JUANCHO chio [facility] 2022-04-25 2022-04-25 Telephone Team, [facility] MANNY 1.2.840.114 [id number] Univers 00:00:00 00:00:00 Health LACOMBE 350.1.13.10 it y of [facility] 4.2.7.2.686 [place] [phone] [facility] [address] [place] 2022-01-17 2022-01-17 Urgent Renetta Johansen [facility] 1.2.840.114 [id number] Univers 10:40:00 11:00:00 Care Ellie [facility] 350.1.13.10 ity of [place] 4.2.7.2.686 Thanh as DARIEL?BLEA [phone] [facility] [address] [place] MEDICAL OFFICE [facility] 2022-01-17 2022-01-17 Outpatient R ELLIE [facility] [id number] Univers 10:40:00 10:58:44 NELY ity [facility] 2022-01-17 2022-01-17 Orders Doctor MANNY 1.2.840.114 [id number] Univers 00:00:00 00:00:00 Only Unassigned, RINA 350.1.13.10 ity of [place] [facility] 4.2.7.2.686 Thanh as [phone] [facility] [address] 2021-11-11 2021-11-11 Urgent Gema Santana [facility] 1.2.840.114 [id number] Univers 15:40:00 16:00:00 Care Bree [facility] 350.1.13.10 ity of [place] 4.2.7.2.686 Thanh as DARIEL?BLEA [phone] Nj katy [facility] [address] [place] MEDICAL OFFICE BUILDING 2021-11-11 2021-11-11 Outpatient R ARISTIDES [facility] [id number] Univers 15:40:00 15:40:00 RANJANA itchio o f [facility] 2021-10-26 2021-10-26 Office [facility] 1.2.840.114 [id number] Univers 09:15:00 09:30:00 Visit [facility] 350.1.13.10 it y of [place] 4.2.7.2.686 Thanh as DARIEL?BLEA [phone] Nj katy [facility] [address] [place] MEDICAL OFFICE BUILDING 2021-10-26 2021-10-26 [facility] [id number] Univers 09:15:00 09:15:00 JUANCHO chio [facility] 2021-08-30 2021-08-30 Orders Doctor BRYANT 1.2.840.114 [id number] Univers 00:00:00 00:00:00 Only Unassigned, RINA 350.1.13.10 ity of [place] [facility] 4.2.7.2.686 Thanh as [phone] [address] 2021-07-27 2021-07-27 Office [facility] 1.2.840.114 [id number] Univers 10:04:33 10:19:33 Visit [facility] 350.1.13.10 it y of [place] 4.2.7.2.686 Thanh as Dariel?Blea [phone] [place] katy champion [address] [place] [address] Medical Office [facility] 2021-07-27 2021-07-27 [facility] [id number] Univers 10:00:00 10:00:00 JUANCHO [facility] 2021-06-27 2021-06-27 Office [facility] 1.2.840.114 [id number] Univers 08:35:43 09:15:59 Visit [facility] 350.1.13.10 it y of [place] 4.2.7.2.686 Thanh as Dariel?Blea [phone] [facility] [address] [place] Medical Office Building 2021-06-27 2021-06-27 Outpatient R ANTOINE, [facility] [id number] Univers 08:30:00 08:30:00 JUANCHO [facility] 2021-06-17 2021-06-17 Urgent Renetta Johansen [facility] 1.2.840.114 [id number] Univers 10:54:15 11:14:15 Vinnie Argueta Nely [facility] 350.1.13.10 ity of [place] 4.2.7.2.686 Thanh as Dariel?Blea [phone] [address] Office [facility] 2021-06-17 2021-06-17 Outpatient R ELLIE [facility] [id number] Univers 11:00:00 11:00:00 [facility] 2021-06-16 2021-06-16 Letter MANNY Villar 1.2.840.114 [id number] Univers 00:00:00 00:00:00 (Out) Mandi Alexandra FLYNN 350.1.13.10 it y of [facility] 4.2.7.2.686 Thanh as [phone] [address] 2021-06-16 2021-06-16 Letter MANNY Villar 1.2.840.114 [id number] Univers 00:00:00 00:00:00 (Out) Mandi FLYNN 350.1.13.10 it y of [facility] 4.2.7.2.686 Thanh as [phone] [address] 2021-06-14 2021-06-14 Laboratory Only, Ang Db Test [facility] 1.2.8 40.114 [id number] Univers 20:06:00 20:16:00 Only Unknown, Attending Health 350.1.13.10 ity of [place] 4.2.7.2.686 [place] Dariel?Blea [phone] [address] Medical Office [facility] 2021-06-14 2021-06-14 Outpatient R UNKNOWN, [facility] [id number] Univers 20:15:00 20:15:00 [facility] 2021-05-11 2021-05-11 [facility] [id number] Univers 11:30:00 11:30:00 JUANCHO [facility] 2021-04-03 2021-04-03 [facility] 1.2.840.114 [id number] Univers 00:00:00 00:00:00 Juancho [facility] 350.1.13.10 it y of [place] 4.2.7.2.686 Thanh as Professio [phone] [address] One 2021-03-02 2021-03-02 Office [facility] 1.2.840.114 [id number] Univers 10:52:20 11:07:20 Visit [facility] 350.1.13.10 it y of [place] 4.2.7.2.686 Thanh as Professio [phone] [address] One 2021-03-02 2021-03-02 [facility] [id number] Univers 10:45:00 10:45:00 [facility] 2021-01-10 2021-01-10 Office [facility] 1.2.840.114 [id number] Univers 13:39:18 13:54:18 Visit [facility] 350.1.13.10 it y of [place] 4.2.7.2.686 Thanh as Professio [phone] [address] One 2021-01-10 2021-01-10 [facility] [id number] Univers 13:30:00 13:30:00 [facility] 2020-10-11 2020-10-11 Office [facility] 1.2.840.114 [id number] Univers 13:02:27 13:17:27 Visit [facility] 350.1.13.10 it y of [place] 4.2.7.2.686 Thanh as Professio [phone] [address] One 2020-10-11 2020-10-11 [facility] [id number] Univers 13:00:00 13:00:00 JUANCHO ity [facility] 2020-09-17 2020-09-17 Outpatient R ELLIE [facility] [id number] Univers 12:40:00 12:40:00 [facility] 2020-09-17 2020-09-17 Laboratory Lab, Adc Fam Pob I [facility] 1.2. 840.114 [id number] Univers 12:00:39 12:20:39 Only Ellie Nely [facility] 350.1.13.10 ity of [place] 4.2.7.2.686 Thanh as Professio [phone] Nj dical [address] Office Building One 2020-09-17 2020-09-17 Letter Doctor MANNY 1.2.840.114 [id number] Univers 00:00:00 00:00:00 (Out) Unassigned, RINA 350.1.13.10 ity of [place] [facility] 4.2.7.2.686 Thanh as [phone] [address] 2020-05-04 2020-05-04 Office [facility] 1.2.840.114 [id number] Univers 15:16:56 16:40:38 Visit Angelita Voss [employer] 350.1.13.10 ity of [facility] 4.2.7.2.686 Thanh as MATERNAL [phone] Med ical & CHILD [address] [place] [address] 2020-05-04 2020-05-04 [facility] [id number] Univers 15:15:00 15:15:00 ANGELITA burketty o f [facility] 2020-05-04 2020-05-04 Orders Doctor MANNY 1.2.840.114 [id number] Univers 00:00:00 00:00:00 Only Unassigned, RINA 350.1.13.10 ity of [place] [facility] 4.2.7.2.686 Thanh as [phone] [facility] [address] [place] 2020-04-26 2020-04-26 Telephone Haily [facility] 1.2.840.114 [id number] Univers 00:00:00 00:00:00 Renetta Villegas 350.1.13.10 i ty of [place].2.[place] Profess[place] [phone] Nj dic[address] 2020-04-25 2020-04-25 Telephone Antoine [facility] 1.2.840.114 [id number] Univers 00:00:00 00:00:00 [facility] 350.1.13.10 it y of [place] 4.2.7.2.686 Thanh as Professio [phone] [address] Office [facility] 2020-04-22 2020-04-22 Laboratory Lab, Adc Fam Pob I [facility] 1.2. 840.114 [id number] Univers 11:49:20 12:09:20 Only Donna Jon [facility] 350.1.13.10 ity of [place] 4.2.7.2.686 Thanh as Professio [phone] [address] 2020-04-22 2020-04-22 Outpatient R [facility] [id number] Univers 11:40:00 11:40:00 ity of [facility] 2020-04-20 2020-04-20 Office [facility] 1.2.840.114 [id number] Univers 15:13:08 16:19:32 Visit Angelita Voss [employer] [address].1.13.[address] [facility] 4.2.7.2.686 Thanh as MATERNAL [phone] Med ical & CHILD [address] [place] [address] 2020-04-20 2020-04-20 [facility] [id number] Univers 15:15:00 15:15:00 ANGELITA ity o f [facility] 2020-04-20 2020-04-20 Orders Doctor MANNY 1.2.840.114 [id number] Univers 00:00:00 00:00:00 Only Unassigned, RINA 350.1.13.10 ity of [place] [facility] 4.2.7.2.686 Thanh as [phone] [address] 2020-02-03 2020-02-03 [facility] [id number] Univers 15:30:00 15:30:00 JUANCHO ity of [facility] 2020-01-30 2020-01-30 Outpatient [facility] [id number] Univers 14:00:00 14:00:00 TAMIKO ity of [facility] 2020-01-27 2020-01-27 Telephone Yelitza [facility] [id number] [id number] Univers 00:00:00 00:00:00 Angelita Voss [employer] 350.1.13.10 ity of [facility] 4.2.7.2.686 Thanh as MATERNAL [phone] Med ical & CHILD 107 [facility] 2019-06-05 2019-06-05 Office Antoine [facility] 1.2.840.114 [id number] Univers 13:27:25 13:49:16 Visit [facility] 350.1.13.10 it y of de[place] 4.2.7.2.686 Thanh as Professio [phone] [facility] [address] [place] Office Building One 2019-06-05 2019-06-05 Orders Doctor MANNY 1.2.840.114 [id number] Univers 00:00:00 00:00:00 Only Unassigned, RINA 350.1.13.10 ity of [place] [facility] 4.2.7.2.686 Thanh as [phone] [address] Results Test Description Test Time Test Comments Results Result Comments Source POCT MOLECULAR FLU 2022-01-17 15:47:50 Test Item Value Reference Range Interpretation Comme nts POCT Molecular FluA (test code = 06011-8) Negative Negative POCT Molecular FluB (test code = 98395-9) Negative Negative Lab Interpretation (test code = 26098-0) [facility] [id number] 15:40:56 Test Item Value Reference Range Interpretation Comments POCT Molecular Strep (test code = Negative Negative 28946-1) Lab Interpretation (test code = Normal 53507-5) [facility]
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
[2023-09-09 15:35] LABS: Specific Gravity 1.011 (1.005-1.030)
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
[2023-09-09] MEDS ORDERED: IBUPROFEN 400 MG TAB ONE (17:36)
[2023-09-09] MEDS ORDERED: ACETAMINOPHEN 325 MG TABLET ONE (17:36)
[2023-09-09 17:43] VITALS: BP 100/75; TEMP 98.1; O2SAT 96
== END 2023-09-09 17:31 | disposition home or self-care (01) ==
LOC: ER 14:29
DX: S16.1XXA Strain of muscle, fascia and tendon at neck level, initial encounter (principal); S80.12XA Contusion of left lower leg, initial encounter; S80.11XA Contusion of right lower leg, initial encounter; S40.021A Contusion of right upper arm, initial encounter; V49.49XA Driver injured in collision with other motor vehicles in traffic accident, initial encounter
CPT/HCPCS: 70450; 71046; 72125; 81025; 99283